=== PATIENT | male | born 1940 | race Caucasian/White ===

== ENCOUNTER 2019-10-11 08:45 | Outpatient (CLI) | payer MEDICARE, OTHER, SELFPAY ==
--- NOTE | 2019-10-11 09:03 | XR_ITS ---
WS: [id number] SHOULDER RIGHT TECHNIQUE: 3 views of the right shoulder CLINICAL INFORMATION: REVERSE TOTAL SHOULDER ARTHROPLASTY COMPARISON: None. FINDINGS: Normal acromioclavicular joint. Reversed right TSA. Right lung is well aerated. A few calcified granu rj. IMPRESSION: Normal appearing reversed right total shoulder arthroplasty
== END 2019-10-11 08:46 | disposition home or self-care (01) ==
LOC: RAD 08:51
PROVIDERS: Family Provider Nurse Practitioner Family; Visit Provider Orthopaedic Surgery
DX: Z96.611 Presence of right artificial shoulder joint (principal)
CPT/HCPCS: 73030

== ENCOUNTER 2019-12-22 11:42 | Outpatient (CLI) | payer MEDICARE, OTHER, SELFPAY ==
--- NOTE | 2019-12-22 11:49 | XR_ITS ---
WS: [id number] ABDOMEN 2 VIEW(S) HISTORY: FLANK PAIN COMPARISON: 01/12/2017 Normal bowel gas pattern. No free air. No obstruction. Calcification measuring 10 mm over the lower pole RIGHT kidney. No LEFT renal calcifications. Possible distal LEFT ureteral calcification measuring 7 mm is ovoid. This calcification was not on th e records section supervisor radiograph of 01/12/2017. Mild degenerative changes in the spine. XR/XR abdomen min 2V [id number] IMPRESSION: 1. Possible distal LEFT ureteral 7 mm ovoid calcification. New calcification s josy 01/12/2017. 2. Lower pole RIGHT renal calcification measuring 10 mm.
== END 2019-12-22 11:43 | disposition home or self-care (01) ==
LOC: RADWPI 11:47
PROVIDERS: PCP Nurse Practitioner Family; Visit Provider Nurse Practitioner Family
DX: R10.9 Unspecified abdominal pain (principal); N20.0 Calculus of kidney
CPT/HCPCS: 74019

== ENCOUNTER 2019-12-27 13:01 | Outpatient (CLI) | payer MEDICARE, OTHER, SELFPAY ==
--- NOTE | 2019-12-27 13:00 | XRR_ITS ---
PROCEDURE INFORMATION: Exam: XR Abdomen, 1 View Exam date and time: 12/27/2019 1:08 PM Age: 79 years old Clinical indication: Patient HX: C/O left flank pain x 2-3 weeks TECHNIQUE: Imaging protocol: XR of the abdomen. Views: Frontal supine view of the abdomen. 1 View. COMPARISON: CT abdomen pelvis w con* [id number] 01/12/2017 10:56 AM FINDINGS: Gastrointestinal tract: Normal. No bowel dilation. Bones/joints: Unremarkable. There is a 7.2 x 7.8 mm caliceal stone in the lower pole collecting system of the right kidney. This finding was present on prior CT examination XR/XR KUB [id number] IMPRESSION: No acute findings. Stable caliceal stone lower pole right kidney
== END 2019-12-27 13:02 | disposition home or self-care (01) ==
LOC: RAD 13:04
PROVIDERS: PCP Nurse Practitioner Family; Visit Provider Urology
DX: R10.9 Unspecified abdominal pain (principal); N20.0 Calculus of kidney
CPT/HCPCS: 74018; 81001

== ENCOUNTER 2019-12-30 08:18 | Outpatient (CLI) | payer MEDICARE, OTHER, SELFPAY ==
--- NOTE | 2019-12-30 08:00 | CT_ITS ---
WS: [id number] CT ABDOMEN AND PELVIS NONCONTRAST HISTORY: STONE TECHNIQUE: Imaging performed through the abdomen and pelvis. Coronal and sagittal reformats are submi tted. All CT scans at [facility] use at least one of these dose optimization techniques: automated exposure control; mA and/or kV adjustment per patient size (includes targeted exams where d ose is matched to clinical indication); or iterative reconstruction. DLP: 852.94 mGy.cm COMPARISON: 01/12/2017 Lower thorax: Chronic emphysematous changes. Benign LEFT lower lobe granuloma. Long-term stability of a 5 mm nodule in the RIGHT middle lobe. Mild enlargement the heart chambers. Small hiatal hernia. Liver: Normal, no mass or intrahepatic dilatation. Gallbladder: Unremarkable. Pancreas: Normal. Spleen: Normal. Adrenal glands: Mild thickening of the LEFT adrenal gland. No mass. Right kidney: Several nonobstructing stones in the RIGHT renal pelvis. The largest measures 8 mm in t he lower pole. No obstruction. Left kidney: Mild perinephritic stranding. Nonobstructing calcifications with the largest measuring 6 mm. 2.5 cm low-attenuation lesion in the LEFT kidney is probably a cyst. Increased in size since 201 7. Global cysts were seen on the prior study and these are not as apparent on this unenhanced study. Mild atherosclerosis. No free fluid, intraperitoneal air or significant lymphadenopathy. GI tract: Small diverticulum along the second portion of the duodenum. No GI tract obstruction. The a ppendix is not definitely identified. No inflammatory process. There are numerous diverticula in the descending and sigmoid colon. Mild associated chronic wall thickening. No acute inflammation. Abdominal wall: Small umbilical hernia contains fat only. Pelvis: Normally distended urinary bladder. There are numerous calcific densities in the floor the ur inary bladder. These are contiguous and extends into the prostate gland. Others may be bladder calcul i. The largest measures 6 mm. Prostate gland is enlarged measuring 8.3 x 5.1 x 4.4 cm and contains ce ntral calcifications. No ascites or adenopathy in the pelvis. Osseous structures: L5 anterolisthesis by 10 mm due to bilateral pars defects. Similar to the prior e xamination. CT/CT kidney stone [id number] IMPRESSION: 1. Bilateral nephrolithiasis. Largest calcification on the RIGHT measures 8 mm . 2. Markedly enlarged prostate gland measures 8.3 x 5.1 x 4.4 cm. 3. Bladder and prostate gland calcifications. 4. No LEFT ureteral calcification. 5. Grade 1 spondylolisthesis with spondylolysis at L5.
== END 2019-12-30 08:19 | disposition home or self-care (01) ==
LOC: RAD 08:21
PROVIDERS: PCP Nurse Practitioner Family; Visit Provider Urology
DX: N20.0 Calculus of kidney (principal); N40.0 Benign prostatic hyperplasia without lower urinary tract symptoms; N32.89 Other specified disorders of bladder; M43.06 Spondylolysis, lumbar region
CPT/HCPCS: 74176; 81001

== ENCOUNTER 2020-08-14 12:04 | Outpatient (CLI) | payer MEDICARE, OTHER, SELFPAY ==
--- NOTE | 2020-08-14 09:00 | XR_ITS ---
WS: [id number] Exam: XR KUB [id number] Date/Time of Exam: 08/14/2020 12:24 PM Reason For Exam: BLADDER STONE No bowel obstruction or free air. There are calcifications superimposing both kidneys apparently repr esenting known renal stones. Moderate amount of stool throughout the large bowel. Visualized organ ma rgins are otherwise intact. XR/XR KUB [id number] IMPRESSION: 1. 8 mm calcification superimposes the lower pole the right kidney probably rep resenting a renal stone. There are also 2 tiny calcifications measuring the ran ge of 2 to 3 mm each superimposing the left kidney which are also probably amanda l stones. 2. No acute abdominal process.
== END 2020-08-14 12:05 | disposition home or self-care (01) ==
LOC: RAD 12:10
PROVIDERS: PCP Nurse Practitioner Family; Visit Provider Urology
DX: N21.0 Calculus in bladder (principal); N20.0 Calculus of kidney
CPT/HCPCS: 74018; 81003

== ENCOUNTER 2021-08-13 11:47 | Outpatient (CLI) | payer MEDICARE, OTHER, SELFPAY ==
--- NOTE | 2021-08-13 12:00 | XR_ITS ---
WS: [id number] Exam: XR KUB [id number] Date/Time of Exam: 08/13/2021 11:59 AM Reason For Exam: BILATERAL RENAL STONES Comparison 08/14/2020. No bowel obstruction or free air. Calcifications superimpose both renal silhouettes and apparently re present known kidney stones. Nonspecific small calcifications seen along the right and left paraspina l regions of the lumbar spine. Prominent nonspecific pelvic calcifications.. No sign of organ enlarge ment. Bony structures are intact. XR/XR KUB [id number] IMPRESSION: 1. Calcifications superimposing both kidneys representing known renal stones. N onspecific calcifications along the right and left paraspinal region of the bry mbar spine and also within the pelvis. 2. No acute abdominal process.
== END 2021-08-13 11:48 | disposition home or self-care (01) ==
PROVIDERS: PCP Nurse Practitioner Family; Visit Provider Urology
DX: N20.0 Calculus of kidney (principal); N21.0 Calculus in bladder; N40.1 Benign prostatic hyperplasia with lower urinary tract symptoms; N13.8 Other obstructive and reflux uropathy
CPT/HCPCS: 74018; 81003; 87635

== ENCOUNTER 2021-08-19 12:01 | Observation (INO) | payer MEDICARE, OTHER, SELFPAY ==
[2021-08-16 12:46] VITALS: BMI 24.3
[2021-08-19] VITALS (16 sets, daily range): BP systolic 104–152; BP diastolic 62–86; PULSE 62–109; RESP 17–20; TEMP 36.3–37.1; O2SAT 91–99; BMI 24.3
[2021-08-19 09:31] LABS: Basophils % 0.2 %; Eosinophils # 0.1 10^3/uL (0.0-0.8); Eosinophils % 1.8 %; Hematocrit 43.3 % (42.0-52.0); Hemoglobin 14.1 g/dL (11.7-16.6); Lymphocytes # 0.9 10^3/uL (0.8-4.8); Lymphocytes % 14.6 %; Mean Corpuscular HGB Conc 32.6 g/dL (30.0-36.0); Mean Corpuscular Hemoglobin 29.7 pg (28.0-34.0); Mean Corpuscular Volume 91.4 fl (80-94); Mean Platelet Volume 8.8 fL (7.4-10.4); Monocytes # 0.4 10^3/uL (0.2-0.9); Monocytes % 7.4 %; Neutrophils # 4.52 10^3/uL (1.8-7.7); Neutrophils % 75.8 %; Nucleated Red Blood Cells % 0 %; Platelet Count 187 10^3/cmm (130-400); Red Blood Count 4.74 10^6/uL (4.1-5.3); Red Cell Distribution Width 12.5 % (12.1-15.1)
--- NOTE | 2021-08-19 09:39 | P.ANESASSM_ITS ---
Pre-Anesthetic Assessment Height/Weight: Height 1.73 m Weight 72.575 kg Temp Pulse Resp BP Pulse Ox 98.2 F 62 18 149/86 97 08/19/21 09:22 08/19/21 09:22 08/19/21 09:22 08/19/21 09:22 08/19/21 09:22 Preop Diagnosis: Multiple bladder stones, BPH/obstruction Operation Date: 08/19/21 10:20 Proposed Procedures p Cystoscopy 27679/00216/N21.0/N40.1/N13.8(Not Applicable) - Jeff Lentz MD s Transurethral Resection Of Prostate(Not Applicable) - Jeff Lentz MD Familial anesthetic complications: None Was Beta Aurora taken within 24 hours: N/A Was Clonidine taken within 24 hours: N/A Last intake: Intake Last Liquid Date 08/18/21 Last Liquid Time 15:00 Last Solid Date 08/18/21 Last Solid Time 15:00 Social No alcohol and No tobacco Exam alert, oriented x 3, clear to auscultation bilaterally and regular rate & rhythm Airway Submandibular: within normal limits Cervical ROM: within normal limits Mallampati: Class II Dentition: false CV/HEM Hypertension Anesthetic Plan ASA status: 2 Anesthesia: General Medications/Allergies Home Medications Medication Instructions Recorded Confirmed Last Taken Type cholecalciferol (vitamin D3) 25 25 mcg PO DAILY 12/27/19 08/19/21 08/18/21 History mcg (1,000 unit) capsule lisinopril 10 mg tablet 10 mg PO DAILY 12/27/19 08/19/21 08/18/21 History coenzyme Q10 100 mg capsule (Co 100 mg PO DAILY 12/30/19 08/19/21 08/18/21 History Q-10) latanoprost 0.005 % eye drops 1 drp OPHTHALMIC (EYE) DAILY 08/14/20 08/19/21 08/18/21 History Allergies Allergy/AdvReac Type Severity Reaction Status Date / Time No Known Allergies Allergy Unverified 08/19/21 08:58 [facility] Anesthesia Medical History (Updated 08/13/21 @ 14:15 by Jeff Lentz MD) Benign prostatic hyperplasia with lower urinary tract symptoms Bilateral renal stones Bladder stone Elevated PSA Surgical History History of tonsillectomy and adenoidectomy Hx of cataract removal with insertion of prosthetic lens Hx of transurethral resection of prostate Social History Smoking and tobacco status: never smoked Alcohol intake: never Adopted: No Caregiver/support person: No Marital status: / Current occupational status: employed Data Anesthesia : 08/19/21 09:05 08/19/21 09:05 Short CBC 08/19/21 Range/Units 09:05 WBC 6.0 (4.0-10.0) 10^3/uL Hgb 14.1 (11.7-16.6) g/dL Hct 43.3 (42.0-52.0) % MCV 91.4 (80-94) fl Plt Count 187 (130-400) 10^3/cmm Neut % (Auto) 75.8 % Neut # (Auto) 4.52 (1.8-7.7) 10^3/uL Cardiac Studies: No Data to Display
[2021-08-19 09:48] LABS: Alanine Aminotransferase 7 U/L (0-41); Albumin Level 4.4 g/dL (3.5-5.2); Alkaline Phosphatase 99 IU/L (40-130); Anion Gap 15.2 (5-19); Aspartate Amino Transferase 17 U/L (0-40); Blood Urea Nitrogen 22 mg/dL (8-23); Calcium 9.1 mg/dL (8.5-10.5); Carbon Dioxide 25 mmol/L (22-29); Chloride 103 mmol/L (98-107); Globulin 2.7 g/dL (1.3-4.6); Glucose 105 mg/dL (65-115); Osmolality Calculated 292 mOsm/kg (285-295); Potassium 4.2 mmol/L (3.5-5.1); Sodium 139 mmol/L (136-145); Total Bilirubin 0.8 mg/dL (0.15-1.2); Total Protein 7.1 g/dL (6.6-8.7)
--- NOTE | 2021-08-19 09:54 | W.PM.OPSUD ---
Surgery/Procedure H&P Update DATE OF PROCEDURE: August 19, 2021 DATE H&P PERFORMED: 08/13/21 H&P UPDATE INFORMATION: I have reviewed H&P completed within last 30 days, I have examined patient prior to procedure, No changes to prior documentation and H&P to be scanned into chart PREOP DIAGNOSIS: Multiple bladder stones, BPH/obstruction PLANNED PROCEDURE: Operation Date: 08/19/21 10:20 Proposed Procedures p Cystoscopy 32129/35674/N21.0/N40.1/N13.8(Not Applicable) - Jeff Lentz MD s Transurethral Resection Of Prostate(Not Applicable) - Jeff Lentz MD
--- NOTE | 2021-08-19 10:04 | P.OP_ITS ---
Operative Report Date of procedure: August 19, 2021 Pre-op diagnosis: Preop Diagnosis Multiple bladder stones, BPH/obstruction Post-op diagnosis: Multiple bladder stones, BPH/obstruction Procedure done: 1. Cystoscopy, transurethral resection/vaporization of prostate tissue 2. Cystolitholapaxy >2.5 cm Pathology: Prostate chips Bladder stone fragments Surgeon: Tor Anesthesia: General Estimated blood loss: Minimal Urine output: Not measured Complications: None Findings: 1. Multiple bladder stones fragmented and removed 2. Large regrowth of median lobe mostly vaporized. Some lateral lobe hypertrophy also vaporized for opening up the channel. Brief History: Alex is a very pleasant 80-year-old white male with a history of transurethral resection/vaporization of prostate about 10 years ago. Did well for many years with some slowing of his stream recently. Was found to have some gross hematuria and discovered to have multiple bladder stones and a lot of regrowth of adenomatous tissue. We discussed the option of just treating the stones which would likely help some of his symptoms but also the fact that with such a large amount of regrowth of prostatic tissue that he is likely to form more in the future. He also 1 to see if he could get a better response for voiding purposes. Procedure: After routine preoperative evaluation examination and obtaining of informed consent he was taken to the operating suite on 08/19/2021 where general anesthe basil was administered without difficulty after appropriate timeout was performed, SCDs confirmed to be functioning, preoperative antibiotics administered, beta- armin protocol confirmed. Prepped and draped in usual sterile fashion in dorsolithotomy position paying careful attention to avoiding pressure points. 21 Irish cystoscope with 30 degree lens was introduced into the urethra meatus and advanced into the bladder under videoscopy. Bladder was systematically examined. Clinic findings were confirmed. 365 ?m thulium superpulse laser fiber was utilized to fragment all the stones into small enough pieces it could be easily evacuated from the bladder with an [employer] evacuator. At the completion of procedure all stone fragments were complete for him to be out. Urethra was then calibrated with [place] sounds and easily accommodated 30 Irish. 2% lidocaine jelly was instilled into the urethra then a well- lubricated continuous-flow resectoscope sheath with visual obturator in place w as advanced into the bladder without difficulty. The gyrus bipolar system was utilized first with vaporization button for addressing the prostatic tissue. Attention was then directed to treating the prostate. He had very little lateral lobe hypertrophy regrowth but had a very large protruding median lobe to the level of the previous resection. There was a clear delineation proximally from the bladder neck to this lobe but extended all the way anteriorly to the anterior bladder neck. Initially the button probe was utilized for vaporization which allowed better flow of fluid in and out of the bladder through the scope and once this was achieved the super loop was utilized to resect down to the previously floor. This freed up the prostate fossa dramatically. All chips were evacuated from the bladder. The button probe was then utilized for vaporization and sculpting of the prostatic fossa. At the completion all chips were out of the bladder, hemostasis was excellent, there were no additional bladder stones visualized. Bladder was drained with a 20 Irish three-way Lancaster catheter with 30 cc placed in the balloon with clear efflux. Tolerated procedure well without complications and was awakened in the operating room and returned to the recovery room in stable condition. PLANS: 1. Admit to observation status 2. Anticipate discharge tomorrow without Lancaster catheter. Voiding trial in the morning.
[2021-08-19] MEDS: D5-NS 0.45% + KCL 20 mEq 20 MEQ/1,000 ML BAG 50 MEQ IV (13:48)
[2021-08-19] MEDS: lidocaine 2% Urojet 20 mL (13:48)
[2021-08-19] MEDS: lisinopril 10 mg Tablet PO (13:48)
--- NOTE | 2021-08-19 14:34 | ANE.PACU2 ---
Inpatient post-anesthesia follow up: Airway intact: Yes Vital signs: Temperature 97.4 F Pulse Rate 86 Respiratory Rate 18 Blood Pressure 124/68 Pulse Oximetry 96 Oxygen Delivery Me thod Room Air Oxygen Flow Rate 6 Fraction of Inspir ed Oxygen Hydration adequate: Yes Nausea and vomiting: No Pain level: 2 Mental status: Baseline
[2021-08-19] MEDS: docusate sodium 100 mg Capsule PO (18:22)
[2021-08-20] VITALS (8 sets, daily range): BP systolic 112–128; BP diastolic 62–76; PULSE 67–103; RESP 16–18; TEMP 36.7–37.2; O2SAT 94–97
--- NOTE | 2021-08-20 07:36 | PM.DCS ---
Discharge Providers Date of Admission: 08/19/21 12:01 Date of Discharge: August 20, 2021 Attending Provider at Admission: Jeff Lentz MD Attending Provider at Discharge: Jeff Lentz MD Primary Care Provider: Italia Strange NP Reason for Visit Reason for Visit: N21.0/N40.1/N13.8 Brief History: Mr. Carbajal is an 80-year-old white male who had a remote TURP with good effect but over time had increasing symptoms again. 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 Cystoscopy in clinic revealed a very large obstructing regrown median lobe but minimal lateral lobe regrowth. He had multiple bladder stones and elected to proceed with cystolitholapaxy and transurethral section/vaporization of the prostate. Hospital Course Hospital Course Admitted through Outpatient Surgery on 08/19/2021. Underwent transurethral section/vaporization of the prostate after cystolitholapaxy. Lancaster catheter was removed on postop day #1 and he voided spontaneously with clearing urine. PVRs confirmed adequate emptying and he was discharged in stable condition on postop day #1. Physical Exam Const: COMMON NORMALS: no acute distress, average body habitus and patient oriented x3 Resp: COMMON NORMALS: normal respiratory effort, No retractions and clear to auscultation bilaterally AUSCULTATION: clear to auscultation bilaterally : OTHER: Urine is clear. Extremity: NARRATIVE EXTREMITY EXAM: Good range of motion. Neuro: COMMON NORMALS: patient oriented x3 Psych: COMMON NORMALS: mental status grossly normal and Normal thought process present THOUGHT PROCESS: Normal thought process present Urinary Catheter Management: 3-way Urethral CBI: Cath Placed During This Visit: yes Reason for Continuing Indwelling Catheter: Acute Urinary Retention or Obstruction Urinary Catheter Date of Insertion: 08/19/21 Urinary Catheter Time of Insertion: 11:00 Discharge Data Studies Completed and Pending Pending at discharge Category Date Time Status Stone Analysis Routine Lab 08/19/21 10:46 Received Pathology: Surgical [PTH] Routine Pth 08/19/21 11:17 Received Laboratory Results WBC 6.0 10^3/uL (4.0-10.0) 08/19/21 09:05 RBC 4.74 10^6/uL (4.1-5.3) 08/19/21 09:05 Hgb 14.1 g/dL (11.7-16.6) 08/19/21 09:05 Hct 43.3 % (42.0-52.0) 08/19/21 09:05 MCV 91.4 fl (80-94) 08/19/21 09:05 MCH 29.7 pg (28.0-34.0) 08/19/21 09:05 MCHC 32.6 g/dL (30.0-36.0) 08/19/21 09:05 RDW 12.5 % (12.1-15.1) 08/19/21 09:05 Plt Count 187 10^3/cmm (130-400) 08/19/21 09:05 MPV 8.8 fL (7.4-10.4) 08/19/21 09:05 Neut % (Auto) 75.8 % 08/19/21 09:05 Lymph % (Auto) 14.6 % 08/19/21 09:05 Morris % (Auto) 7.4 % 08/19/21 09:05 Eos % (Auto) 1.8 % 08/19/21 09:05 Baso % (Auto) 0.2 % 08/19/21 09:05 Neut # (Auto) 4.52 10^3/uL (1.8-7.7) 08/19/21 09:05 Lymph # (Auto) 0.9 10^3/uL (0.8-4.8) 08/19/21 09:05 Morris # (Auto) 0.4 10^3/uL (0.2-0.9) 08/19/21 09:05 Eos # (Auto) 0.1 10^3/uL (0.0-0.8) 08/19/21 09:05 Baso # (Auto) 0.0 10^3/uL (0.0-0.1) 08/19/21 09:05 Nucleated RBC % (auto) 0 % 08/19/21 09:05 Nucleated RBCs # 0.0 /100WBC 08/19/21 09:05 Sodium 139 mmol/L (136-145) 08/19/21 09:05 Potassium 4.2 mmol/L (3.5-5.1) 08/19/21 09:05 Chloride 103 mmol/L (98-107) 08/19/21 09:05 Carbon Dioxide 25 mmol/L (22-29) 08/19/21 09:05 Anion Gap 15.2 (5-19) 08/19/21 09:05 BUN 22 mg/dL (8-23) 08/19/21 09:05 Creatinine 1.0 mg/dL (0.7-1.2) 08/19/21 09:05 GFR Calculation Not Reportable 08/19/21 09:05 Glucose 105 mg/dL (65-115) 08/19/21 09:05 Calculated Osmolality 292 mOsm/kg (285-295) 08/19/21 09:05 Calcium 9.1 mg/dL (8.5-10.5) 08/19/21 09:05 Total Bilirubin 0.8 mg/dL (0.15-1.2) 08/19/21 09:05 AST 17 U/L (0-40) 08/19/21 09:05 ALT 7 U/L (0-41) 08/19/21 09:05 Alkaline Phosphatase 99 IU/L (40-130) 08/19/21 09:05 Total Protein 7.1 g/dL (6.6-8.7) 08/19/21 09:05 Albumin 4.4 g/dL (3.5-5.2) 08/19/21 09:05 Globulin 2.7 g/dL (1.3-4.6) 08/19/21 09:05 Procedures Performed Cystoscopy, transurethral resection/vaporization of the prostate Cystolitholapaxy Vitals Last Vital Signs Temp 98.4 F 08/20/21 04:00 Pulse 74 08/20/21 07:26 Resp 16 08/20/21 07:26 BP 127/69 08/20/21 07:26 Pulse Ox 97 08/20/21 07:26 Discharge Plan Discharge Patient Disposition: Home Condition: Stable Prescriptions: Continued lisinopril 10 mg tablet 10 mg PO DAILY 0RF cholecalciferol (vitamin D3) 25 mcg (1,000 unit) capsule 25 mcg PO DAILY 0RF coenzyme Q10 [Co Q-10] 100 mg capsule 100 mg PO DAILY 0RF latanoprost 0.005 % drops 1 drp ophthalmic (eye) DAILY 0RF Discharge Orders: Discharge Order (Routine); Ordered 08/20/21 Ordered By: Jeff Lentz Referrals: Jeff Lentz MD [Physician] - 10/24/21 8:15 am (Flow rate PVR AUA symptom score.) Discharge Diet: Advance as tolerated Discharge Activity: Limit activity as instructed Patient Instructions: Transurethral Prostatectomy (GEN), Opioid Safety Activity Restrictions/Additional Instructions: 1. Avoid lifting or straining for at least 2 weeks. If your urine is still bloody at that point continue to postpone resumption of normal activity. 2. It is normal to see blood in your urine off and on for several weeks after the procedure. If this does occur it is important to drink a lot of fluids to flush it out to prevent clots and to avoid strenuous activity that may have precipitated it. 3. We will plan on seeing you back in about 2 months for a flow rate and bladder residual check. Please call if prior to that time if you have concerns or questions. Discharge Attestations Time Spent in Discharge Care*: less than 30 min Quality Metrics Clinical Quality Measures [ No reported AMI, CVA or VTE this stay] Coding Level of Care Code Acute Chg FW DC note Exam Expanded Problem Focused
[2021-08-20] MEDS: D5-NS 0.45% + KCL 20 mEq 20 MEQ/1,000 ML BAG 50 MEQ IV (08:27)
[2021-08-20] MEDS: docusate sodium 100 mg Capsule PO (08:27)
[2021-08-20] MEDS: lisinopril 10 mg Tablet PO (08:27)
[2021-08-23 23:28] LABS: Stone Source BLADDER STONES
== END 2021-08-20 17:05 | disposition home or self-care (01) ==
LOC: MEDSURG 12:03
PROVIDERS: Admitting Provider Urology; PCP Nurse Practitioner Family; Visit Provider Urology
PROC: 0TJB8ZZ Inspection of Bladder, Via Natural or Artificial Opening Endoscopic (ICD-10-PCS; CPT 52000; principal; 2021-08-19 10:10)
PROC: 0VT08ZZ Resection of Prostate, Via Natural or Artificial Opening Endoscopic (ICD-10-PCS; CPT 52601; 2021-08-19 10:10)
PROC: (CPT 52318; 2021-08-19 10:10)
DX: N21.0 Calculus in bladder (principal); N40.1 Benign prostatic hyperplasia with lower urinary tract symptoms; N13.8 Other obstructive and reflux uropathy
CPT/HCPCS: 52318; 52630; 36415; 51798; 80053; 82365; 85025; 88300; 88305; G0378; J1100; J2405; J2704; J2710; J3010; J3490

== ENCOUNTER → 2022-02-21 11:33 | Outpatient (BNVA) | payer MEDICARE, OTHER, SELFPAY | PROVIDERS: PCP Nurse Practitioner Family; Visit Provider Urology | DX: R33.9 Retention of urine, unspecified (principal); N20.0 Calculus of kidney; R31.0 Gross hematuria; N21.0 Calculus in bladder; N40.1 Benign prostatic hyperplasia with lower urinary tract symptoms | CPT/HCPCS: 51798; 74018; 81003; 99213 ==

== ENCOUNTER → 2022-03-18 09:02 | Outpatient (BNVA) | payer MEDICARE, OTHER, SELFPAY | PROVIDERS: PCP Family Medicine; Referring Provider Family Medicine; Visit Provider Surgery | DX: Z12.11 Encounter for screening for malignant neoplasm of colon (principal) | CPT/HCPCS: 99024; 99203 ==

== ENCOUNTER 2022-04-07 05:44 | Day surgery (SDC) | payer MEDICARE, OTHER, SELFPAY ==
[2022-04-03 09:37] VITALS: BMI 24.3
[2022-04-07 06:08] VITALS: BP 160/93; PULSE 90; RESP 18; TEMP 36.3; O2SAT 97
[2022-04-07] MEDS: sodium chloride 0.9% 1,000 ML 30 ML IV (06:24)
--- NOTE | 2022-04-07 06:49 | ANES.PREANE2 ---
Pre-Anesthetic Assessment Height/Weight: Height 1.73 m Weight 72.575 kg Temp Pulse Resp BP Pulse Ox O2 Del Method 97.4 F L 90 18 160/93 97 04/07/22 06:08 04/07/22 06:08 04/07/22 06:08 04/07/22 06:08 04/07/22 06:08 04/07/22 06:08 Preop Diagnosis: Multiple bladder stones, BPH/obstruction Operation Date: 04/07/22 07:00 Proposed Procedures p Colonoscopy 63477,Z12.11(Not Applicable) - Vinny Rodas DO Familial anesthetic complications: none Was Beta Aurora taken within 24 hours: N/A Was Clonidine taken within 24 hours: N/A Last intake: Intake Last Liquid Date 04/06/22 Last Liquid Time 17:00 Last Solid Date 04/05/22 Last Solid Time 14:00 Last Intake: 17:00 Social No alcohol and No tobacco Exam alert, oriented x 3, clear to auscultation bilaterally and regular rate & rhythm Airway Submandibular: within normal limits Cervical ROM: within normal limits Mallampati: Class I Dentition: false Pulmonary None reported CV/HEM Hypertension None reported Hepatic None reported GI None reported Metabolic None reported Musc/skel Lower Back Pain and Osteoarthritis/DJD Neuropsych None reported Anesthetic Plan ASA status: 2 Anesthesia: MAC Risk of > 500 ml blood loss (7ml/kg in children): No Medications/Allergies Home Medications Medication Instructions Recorded Confirmed Last Taken Type cholecalciferol (vitamin D3) 25 25 mcg PO DAILY 12/27/19 04/03/22 04/05/22 History mcg (1,000 unit) capsule coenzyme Q10 100 mg capsule (Co 100 mg PO DAILY 12/30/19 04/03/22 04/05/22 History Q-10) latanoprost 0.005 % eye drops 1 drp ophthalmic (eye) DAILY 08/14/20 04/03/22 04/05/22 History lisinopril 10 mg tablet 5 mg PO DAILY #30 tabs 03/19/22 04/03/22 04/05/22 Rx Allergies Allergy/AdvReac Type Severity Reaction Status Date / Time No Known Allergies Allergy Unverified 04/03/22 09:36 Current Medications Generic Name Dose Route Start Last Admin Trade Name Freq PRN Reason Stop Dose Admin Sodium Chloride 1,000 mls @ 30 mls/hr 10/17/22 06:00 04/07/22 06:24 Sodium Chloride 0.9% IV 30 mls/hr .Q24H GEOVANNY Administration PFSH Anesthesia Medical History Benign prostatic hyperplasia with lower urinary tract symptoms Bilateral renal stones Bladder stone CYSTOLITHALOPAXY Elevated PSA HTN (hypertension) Hx of colonic polyps Surgical History (Updated 03/18/22 @ 09:49 by Vinny Rodas DO) History of shoulder replacement History of tonsillectomy and adenoidectomy Hx of cataract removal with insertion of prosthetic lens Hx of total knee replacement Hx of transurethral resection of prostate With CYSTOLITHALOPAXY Social History Smoking and tobacco status: never smoked Alcohol intake: never Adopted: No Caregiver/support person: No Marital status: / Current occupational status: employed History of recent travel: No Data Anesthesia Cardiac Studies: No Data to Display
--- NOTE | 2022-04-07 07:00 | W.PM.OPSUD ---
Surgery/Procedure H&P Update DATE OF PROCEDURE: April 07, 2022 DATE H&P PERFORMED: 03/18/22 PREOP DIAGNOSIS: Multiple bladder stones, BPH/obstruction PLANNED PROCEDURE: Operation Date: 04/07/22 07:00 Proposed Procedures p Colonoscopy 65091,Z12.11(Not Applicable) - Vinny Rodas DO
[2022-04-07 07:15] VITALS: BP 85/59; PULSE 80; RESP 16; TEMP 36.1; O2SAT 97
[2022-04-07 07:26] VITALS: BP 119/76; PULSE 84; RESP 18; O2SAT 98
--- NOTE | 2022-04-07 14:56 | ANE.PACU2 ---
Inpatient post-anesthesia follow up: Airway intact: Yes Vital signs: Temperature 97 F Pulse Rate 84 Respiratory Rate 18 Blood Pressure 119/76 Pulse Oximetry 98 Oxygen Delivery Me thod Room Air Oxygen Flow Rate Fraction of Inspir ed Oxygen Hydration adequate: Yes Nausea and vomiting: No Pain level: 1 Mental status: Baseline
== END 2022-04-07 07:50 | disposition home or self-care (01) ==
PROVIDERS: PCP Family Medicine; Visit Provider Surgery
PROC: 0DJD8ZZ Inspection of Lower Intestinal Tract, Via Natural or Artificial Opening Endoscopic (ICD-10-PCS; CPT 45330; principal; 2022-04-07 07:00)
DX: Z12.11 Encounter for screening for malignant neoplasm of colon (principal); K57.30 Diverticulosis of large intestine without perforation or abscess without bleeding; K64.4 Residual hemorrhoidal skin tags; I10 Essential (primary) hypertension
CPT/HCPCS: 45330; J2704; J7030

== ENCOUNTER 2022-05-16 13:21 | Outpatient (CLI) | payer MEDICARE, OTHER, SELFPAY ==
--- NOTE | 2022-05-16 13:00 | CT_ITS ---
WS: [id number] CT ABDOMEN PELVIS TECHNIQUE: Contrast-enhanced CT of the abdomen and pelvis with coronal and sagittal reformatted image s. CLINICAL INFORMATION: Abdominal pain right flank pain COMPARISON: CT December 30, 2019 DLP: 927.[address] scans at [facility] use at least one of these dose optimization techniques: automated e xposure control; mA and/or kV adjustment per patient size (includes targeted exams where dose is matc hed to clinical indication); or iterative reconstruction. FINDINGS: Anterior wedging with compression of the L1 vertebral body is new from 2020. Loss of approximately 50 % vertebral body height. No significant retropulsion. Fracture cleft in the superior endplate. Recomm end correlation with low-back pain. Normal liver. Normal portal vein and splenic vein. A few tiny noncalcified nodules in the lung bases. This can be followed up with chest CT. Normal spleen. Normal pancreas. Adrenal glands are normal. Sm all esophageal hiatal hernia. No hydronephrosis in either kidney. Nonobstructing RIGHT calyceal tip c alculi. LEFT renal cysts. Largest LEFT renal cyst measures 3.1 cm. No hydronephrosis in either kidney . Markedly enlarged prostate with heterogeneous enhancement. Findings suspicious for neoplasia. This ap pears similar to 2020 measuring 6.5 x 5.3 x 4.9 cm with indentation on the bladder. Mild bladder wall thickening likely due to bladder outlet obstruction. Recommend correlation PSA. Mild thickening of t he seminal vesicles bilaterally. Normal caliber abdominal aorta. Aortic calcification. Sigmoid diverticulosis. Mild thickening of the sigmoid colon with trace surrounding induration in the LEFT lower quadrant can be seen with early or mild acute diverticulitis. Gallbladder appears normal. Grade 1 anterolisthesis L5 on S1 with bilateral spondylolysis. Small amount of fluid along the LEFT proximal inguinal canal. CT/CT abdomen pelvis w con* [id number] IMPRESSION: 1. Sigmoid diverticulosis.Tiny amount of induration in the LEFT lower quadrant can be seen with early or mild diverticulitis although equivocal. Recommend co rrelation with infectious symptoms. 2. Markedly enlarged prostate with heterogeneous enhancement and evidence of b ladder outlet obstruction. Recommend correlation PSA. Findings suspicious for n eoplasia. 3. No hydronephrosis in either kidney. Nonobstructing RIGHT calyceal tip calcu li. 4. Simple LEFT renal cysts the largest measuring 3.1 cm. 5. Compression fracture L1 vertebral body with anterior wedging. Loss of appro ximately 50% vertebral body height with fracture cleft in the superior plate.Co rrelation with low-back pain. This is age indeterminant. 6. Grade 1 anterolisthesis L5 on S1 with spondylolysis.
[2022-05-16] MEDS: iohexol 350 mg/mL 500 mL Btl (per mL) IV (13:28)
[2022-05-16 14:00] LABS: Blood Urea Nitrogen 18 mg/dL (8-23)
== END 2022-05-16 13:22 | disposition home or self-care (01) ==
LOC: RAD 13:22
PROVIDERS: PCP Family Medicine; Visit Provider Family Medicine
DX: K57.30 Diverticulosis of large intestine without perforation or abscess without bleeding (principal); N40.0 Benign prostatic hyperplasia without lower urinary tract symptoms; N20.0 Calculus of kidney; M47.817 Spondylosis without myelopathy or radiculopathy, lumbosacral region; S32.019A Unspecified fracture of first lumbar vertebra, initial encounter for closed fracture; X58.XXXA Exposure to other specified factors, initial encounter
CPT/HCPCS: 74177; 82565; 84520; Q9967

== ENCOUNTER → 2022-05-29 08:47 | Outpatient (BNVA) | payer MEDICARE, OTHER, SELFPAY | PROVIDERS: PCP Family Medicine; Visit Provider Family Medicine | DX: R31.0 Gross hematuria (principal); N40.0 Benign prostatic hyperplasia without lower urinary tract symptoms | CPT/HCPCS: 84153 ==

== ENCOUNTER 2022-08-26 12:47 | Outpatient (CLI) | payer MEDICARE, OTHER, SELFPAY ==
--- NOTE | 2022-08-26 12:56 | XRR_ITS ---
PROCEDURE INFORMATION: Exam: XR Abdomen Exam date and time: 08/26/2022 1:20 PM Age: 81 years old Clinical indication: Condition or disease; Kidney or ureter condition; Calculus (stone) in kidney; Additional info: Bilateral renal stones, kub @ ozh 08/26/22 @100 appointment to follow TECHNIQUE: Imaging protocol: Radiologic exam of the abdomen. Views: Frontal supine view of the abdomen. 1 View. COMPARISON: CT abdomen pelvis w con* [id number] 05/16/2022 1:54 PM FINDINGS: Gastrointestinal tract: Nonspecific nonobstructive bowel gas pattern, with predominance of gas and stool in the colon. Intraperitoneal space: No indication of free air. Organs: Comparison with February 21, 2022 exam. Calcifications overlie the kidneys, the larger within the lower pole of the right kidney, as noted with prior exam. Suggestion of pelvic phleboliths. Bones/joints: No acute findings. Prior mild compression deformity L1. Other findings: Psoas margins appear distinct. XR/XR KUB [id number] IMPRESSION: Suggestion of bilateral renal calculi, largest overlying the lower pole of the right kidney as noted with prior exam. Nonspecific nonobstructive bowel gas pattern.
== END 2022-08-26 12:48 | disposition home or self-care (01) ==
LOC: RAD 12:50
PROVIDERS: PCP Family Medicine; Visit Provider Urology
DX: N20.0 Calculus of kidney (principal); N40.1 Benign prostatic hyperplasia with lower urinary tract symptoms; R31.0 Gross hematuria; N21.0 Calculus in bladder; R97.20 Elevated prostate specific antigen [PSA]
CPT/HCPCS: 51741; 51798; 74018; 81003; 99213

== ENCOUNTER → 2022-12-17 08:51 | Outpatient (BNVA) | payer MEDICARE, OTHER, SELFPAY | PROVIDERS: PCP Family Medicine; Visit Provider Family Medicine | DX: R31.9 Hematuria, unspecified (principal) | CPT/HCPCS: 81000; 87086 ==

== ENCOUNTER → 2022-12-22 14:11 | Outpatient (BNVA) | payer MEDICARE, OTHER, SELFPAY | PROVIDERS: PCP Family Medicine; Visit Provider Family Medicine | DX: N39.0 Urinary tract infection, site not specified (principal); R31.9 Hematuria, unspecified | CPT/HCPCS: 80053; 81003; 85025; 86140 ==

== ENCOUNTER 2023-01-04 17:04 | Emergency (ER) | payer MEDICARE, OTHER, SELFPAY ==
[2023-01-04] VITALS (7 sets, daily range): BP systolic 123–153; BP diastolic 64–92; PULSE 63–80; RESP 16–17; TEMP 36.8; O2SAT 96–99; BMI 22.8
[2023-01-04] MEDS: sodium chloride 0.9% 1,000 ML 999 ML IV (18:26)
[2023-01-04 18:29] LABS: Basophils % 0.6 %; Eosinophils # 0.1 10^3/uL (0.0-0.8); Eosinophils % 2.3 %; Hematocrit 38.3 % (42.0-52.0); Lymphocytes % 26.8 %; Mean Corpuscular HGB Conc 31.3 g/dL (30.0-36.0); Mean Corpuscular Hemoglobin 27.8 pg (28.0-34.0); Mean Corpuscular Volume 88.7 fl (80-94); Mean Platelet Volume 8.8 fL (7.4-10.4); Monocytes # 0.4 10^3/uL (0.2-0.9); Monocytes % 11.9 %; Neutrophils # 2.07 10^3/uL (1.8-7.7); Neutrophils % 58.4 %; Nucleated Red Blood Cells % 0 %; Platelet Count 206 10^3/cmm (130-400); Red Blood Count 4.32 10^6/uL (4.1-5.3); Red Cell Distribution Width 13.8 % (12.1-15.1); White Blood Count 3.5 10^3/uL (4.0-10.0)
--- NOTE | 2023-01-04 18:39 | CTR_ITS ---
PROCEDURE INFORMATION: Exam: CT Abdomen And Pelvis With Contrast Exam date and time: 01/04/2023 6:52 PM Age: 82 years old Clinical indication: Patient HX: Gross hematuria; Additional info: Hematuria with clots TECHNIQUE: Imaging protocol: Computed tomography of the abdomen and pelvis with contrast. Radiation optimization: All CT scans at this facility use at least one of these dose optimization techniques: automated exposure control; mA and/or kV adjustment per patient size (includes targeted exams where dose is matched to clinical indication); or iterative reconstruction. Contrast material: OMNI 350; Contrast volume: 100 ml; Contrast route: INTRAVENOUS (IV); REPORTING DATA: Count of CT and Cardiac NM exams in prior 12 months: This patient has received [address] and 0 known cardiac nuclear medicine studies in the 12 months prior to the current study. COMPARISON: 1. CT abdomen pelvis w con* [id number] 05/16/2022 1:[address] kidney stone [id number] 12/30/2019 9:[address] abdomen pelvis w con* [id number] 01/12/2017 10:56 AM RADIATION DOSE METRICS: Total DLP (mGy-cm): 457.74 FINDINGS: Lungs: Mild bibasilar atelectasis and/or scarring. Multiple lower lung pulmonary nodules stable from December 2019. Heart: Aortic valve calcification. Coronary arteries: Coronary artery calcification. Liver: Normal without focal lesions. Gallbladder and bile ducts: Normal. No calcified stones. No ductal dilation. Pancreas: 1 cm fluid density cyst at the pancreatic body on axial image 27 of series 4 and coronal image 22 of series 6 is stable from December 2016 when using coronal images. Additional 1.3 cm cyst at the head is also stable from 2017. Spleen: Tiny splenic calcifications in keeping with sequela of old granulomatous disease. Adrenal glands: Normal. No mass. Kidneys and ureters: Stable left renal cysts are present, as well as other subcentimeter hypodensities which are too small to characterize. Multiple calcified renal stones, vfyil-[id number]-[id number]-left. No hydronephrosis. Mild symmetric perirenal fat stranding. Normal ureters. Stomach and bowel: Stable duodenal diverticulum. Extensive distal colonic diverticulosis without findings of diverticulitis. No bowel dilatation. No mucosal thickening. Appendix: No evidence of appendicitis. Intraperitoneal space: No free air, free fluid, or well-organized fluid collection. Vasculature: Moderate systemic atherosclerotic calcification without aortic aneurysm. Lymph nodes: No enlarged lymph nodes. Urinary bladder: Underdistended urinary bladder shows circumferential wall thickening. Couple of punctate hyperdensities along the inferior bladder wall, similar to prior exams. Suggested subtle pericystic fat stranding. Reproductive: Heterogeneous enlarged prostate gland measures 5.6 cm in transverse dimension and shows irregular interface with the urinary bladder. Bones/joints: Slight progression of L1 anterior vertebral body compression fracture from April 2022. Degenerative changes along the spine. Stable grade 1 isthmic anterolisthesis of L5 on S1. Soft tissues: Small fat containing umbilical and right inguinal hernias. Small left inguinal hernia containing fat and fluid, stable. CT/CT abdomen pelvis w con* [id number] IMPRESSION: 1. Bilateral nonobstructive nephrolithiasis. 2. Couple punctate calcifications in the urinary bladder similar to prior exams may represent stones. 3. Urinary bladder wall thickening may be on the basis of underdistention, cystitis, and/or outlet obstruction. 4. Heterogeneous enlarged prostate gland. 5. Couple of pancreatic cysts stable from December 2016. Recommend follow-up CT or MRI in 2 years and 4 years to document 10 years stability. 6. Slight progression of L1 anterior vertebral body compression fracture. 7. Additional chronic and incidental findings as above, to include atherosclerosis with coronary artery calcification, duodenal and colonic diverticulosis.
[2023-01-04 18:45] LABS: INR 1.08 (0.8-1.2)
[2023-01-04 18:46] LABS: Partial Thromboplastin Time 29.1 SECONDS (23.9-36.7)
[2023-01-04 18:50] LABS: Alanine Aminotransferase 6 U/L (0-41); Albumin Level 3.7 g/dL (3.5-5.2); Alkaline Phosphatase 97 U/L (40-130); Anion Gap 14.4 (5-19); Aspartate Amino Transferase 10 U/L (0-40); Blood Urea Nitrogen 23 mg/dL (8-23); C Reactive Protein 3.3 mg/L (0.0-4.9); Carbon Dioxide 26 mmol/L (22-29); Chloride 106 mmol/L (98-107); Globulin 2.5 g/dL (1.3-4.6); Glucose 63 mg/dL (65-115); Osmolality Calculated 296 mOsm/kg (285-295); Potassium 4.4 mmol/L (3.5-5.1); Sodium 142 mmol/L (136-145); Total Bilirubin 0.2 mg/dL (0.15-1.2); Total Protein 6.2 g/dL (6.6-8.7)
[2023-01-04] MEDS: iohexol 350 mg/mL 500 mL Btl (per mL) IV (18:53)
[2023-01-04 19:02] LABS: Bilirubin Urine Neg (Negative); Blood Urine 3+ (Negative); Glucose Urine UA Norm (Normal); Ketones Urine 1+ (Negative); Nitrate Urine Negative (Negative); Protein Urine 3+ (Negative); Specific Gravity, Urine 1.025 (1.005-1.030); Urine Appearance Turbid (CLEAR); Urine Color Red (Yellow); pH Urine 7 (5-7)
[2023-01-04 19:03] LABS: Add Urine Microscopic? YES; Leukocyte Esterase Urine 1+ (Negative); Urobilinogen Urine 1 mg/dL (Negative)
[2023-01-04 19:04] LABS: RBC Urine TOO NUMEROUS TO CNT /hpf (0-2)
[2023-01-04 19:05] LABS: Add Urine Culture? Yes; Bacteria Urine 3+ /hpf; Squamous Epithelial Cell Urine 0-4 /hpf (0-5)
--- NOTE | 2023-01-04 19:07 | PC.NURSE ---
Pt report received from Eileen EDMOND. Rounded on pt, pt laying in bed. Pt does not appear to be in distress at this time. Pt denies needs at this time.
--- NOTE | 2023-01-04 20:04 | ED_ITS ---
HPI - Male Genitourinary General: Chief complaint: Urogenital-Male Stated complaint: blood in urine Time Seen by Provider: 01/04/23 18:11 Source: patient History of Present Illness: 82-year-old gentleman here with hematuria on and off for the last 2 weeks. He had seen his physician, an ultrasound was ordered, but he has not had this done yet. He denies fever. Mild burning. He is passing blood and clots. He does not have any obstructive symptoms and that there is no pelvic pain, no urge to go, etc. No vomiting. MD Complaint: other Onset (ago): week(s) Duration: intermittent Severity: moderate Associated symptoms: Reports hematuria; Deny discharge, dysuria, fevers/chills, nausea, rash, swelling, urinary incontinence, urinary retention or vomiting Review of Systems Const: Denies: fever(s) Card: Denies: chest pain Resp: Denies: dyspnea GI: Denies: nausea or vomiting : Reports: hematuria; Denies: dysuria or urinary incontinence PFSH ED PFSH: Medical History Benign prostatic hyperplasia with lower urinary tract symptoms Bilateral renal stones Bladder stone CYSTOLITHALOPAXY Elevated PSA HTN (hypertension) Hx of colonic polyps Surgical History History of shoulder replacement History of tonsillectomy and adenoidectomy Hx of cataract removal with insertion of prosthetic lens Hx of total knee replacement Hx of transurethral resection of prostate With CYSTOLITHALOPAXY Family History Mother , AT AGE 30 No problems noted. Father , AT AGE 99 No problems noted. Social History Smoking and tobacco status: never smoked Alcohol intake: never Substance/Drug Use: unknown Adopted: No Caregiver/support person: No Marital status: / Current occupational status: employed Physical Exam Const: COMMON NORMALS: no acute distress GENERAL APPEARANCE: cooperative; not ill appearing and not frail appearing HENMT: COMMON NORMALS: normocephalic, atraumatic and Normal external nose present HEAD & SCALP: normocephalic and atraumatic FACE & SINUS: normal facial exam and face symmetric NOSE: Normal external nose present Eye: COMMON NORMALS: Equal, round and reactive pupils present and EOMs intact bilaterally PUPIL: Yes Equal, round and reactive pupils present Neck/C-Spine: GENERAL: Yes trachea midline Chest: CHEST: Yes Symmetrical chest wall rise Resp: COMMON NORMALS: normal respiratory effort, No retractions, No use of accessory muscles and clear to auscultation bilaterally AUSCULTATION: clear to auscultation bilaterally Cardio: COMMON NORMALS: regular rate and regular rhythm RATE: regular rate RHYTHM: regular rhythm GI: COMMON NORMALS: Normal to inspection, nondistended, normoactive bowel sounds present Extremity: COMMON NORMALS: no pedal edema Neuro: LUCRECIA COMA SCALE: document GCS findings [place] coma scale eye opening: Spontaneous [place] coma scale verbal response: Orientated [place] coma scale motor response: Obey commands Lucrecia coma scale total score: 15 SENSORY EXAM: Yes extremities (intact) Psych: COMMON NORMALS: speech normal SPEECH: Yes normal speech Skin: COMMON NORMALS: no rashes or lesions noted GENERAL SKIN EXAM: no rashes or lesions noted Course Vital Signs: Vital signs: Vital Signs Temperature 98.3 F 01/04/23 18:02 Pulse Rate 75 01/04/23 20:25 Respiratory Rate 16 01/04/23 20:25 Blood Pressure 143/86 01/04/23 20:25 Pulse Oximetry 98 01/04/23 20:25 Oxygen Delivery Me thod Room Air 01/04/23 20:01 MDM - Male Medical Decision Making Mild leukopenia. Hemoglobin is 12. Sugar 63. He has no mental status changes. He is afebrile. Other vitals are good. CT shows urinary bladder wall thickening. There are couple of punctate calcifications in the bladder. He has nonobstructive nephrolithiasis. And lieu of findings, and urinalysis showing 10-15 whites, 1+ leukocyte Estrace, hemorrhage, and bacteria, will place on a prolonged course of antibiotics and have him follow-up with urology for potential cystoscopy if urinalysis does not clear of urine. Lab Data 01/04/23 18:21 01/04/23 18:21 Radiology Impressions Abdomen/Pelvis CT 01/04/23 18:39 IMPRESSION: 1. Bilateral nonobstructive nephrolithiasis. 2. Couple punctate calcifications in the urinary bladder similar to prior exams may represent stones. 3. Urinary bladder wall thickening may be on the basis of underdistention, cystitis, and/or outlet obstruction. 4. Heterogeneous enlarged prostate gland. 5. Couple of pancreatic cysts stable from December 2016. Recommend follow-up CT or MRI in 2 years and 4 years to document 10 years stability. 6. Slight progression of L1 anterior vertebral body compression fracture. 7. Additional chronic and incidental findings as above, to include atherosclerosis with coronary artery calcification, duodenal and colonic diverticulosis. Laboratory Results WBC 3.5 10^3/uL (4.0-10.0) L 01/04/23 18:21 RBC 4.32 10^6/uL (4.1-5.3) 01/04/23 18:21 Hgb 12.0 g/dL (11.7-16.6) 01/04/23 18:21 Hct 38.3 % (42.0-52.0) L 01/04/23 18:21 MCV 88.7 fl (80-94) 01/04/23 18:21 MCH 27.8 pg (28.0-34.0) L 01/04/23 18:21 MCHC 31.3 g/dL (30.0-36.0) 01/04/23 18:21 RDW 13.8 % (12.1-15.1) 01/04/23 18:21 Plt Count 206 10^3/cmm (130-400) 01/04/23 18:21 MPV 8.8 fL (7.4-10.4) 01/04/23 18:21 Neut % (Auto) 58.4 % 01/04/23 18:21 Lymph % (Auto) 26.8 % 01/04/23 18:21 Karnes % (Auto) 11.9 % 01/04/23 18:21 Eos % (Auto) 2.3 % 01/04/23 18:21 Baso % (Auto) 0.6 % 01/04/23 18:21 Neut # (Auto) 2.07 10^3/uL (1.8-7.7) 01/04/23 18:21 Lymph # (Auto) 1.0 10^3/uL (0.8-4.8) 01/04/23 18:21 Karnes # (Auto) 0.4 10^3/uL (0.2-0.9) 01/04/23 18:21 Eos # (Auto) 0.1 10^3/uL (0.0-0.8) 01/04/23 18:21 Baso # (Auto) 0.0 10^3/uL (0.0-0.1) 01/04/23 18:21 Nucleated RBC % (auto) 0 % 01/04/23 18:21 Nucleated RBCs # 0.0 /100WBC 01/04/23 18:21 PT 14.40 SECONDS (12.1-14.9) 01/04/23 18:21 INR 1.08 (0.8-1.2) 01/04/23 18:21 APTT 29.1 SECONDS (23.9-36.7) 01/04/23 18:21 Sodium 142 mmol/L (136-145) 01/04/23 18:21 Potassium 4.4 mmol/L (3.5-5.1) 01/04/23 18:21 Chloride 106 mmol/L (98-107) 01/04/23 18:21 Carbon Dioxide 26 mmol/L (22-29) 01/04/23 18:21 Anion Gap 14.4 (5-19) 01/04/23 18:21 BUN 23 mg/dL (8-23) 01/04/23 18:21 Creatinine 1.0 mg/dL (0.7-1.2) 01/04/23 18:21 GFR Calculation Not Reportable 01/04/23 18:21 Glucose 63 mg/dL (65-115) L 01/04/23 18:21 Calculated Osmolality 296 mOsm/kg (285-295) H 01/04/23 18:21 Calcium 9.0 mg/dL (8.5-10.5) 01/04/23 18:21 Total Bilirubin 0.2 mg/dL (0.15-1.2) 01/04/23 18:21 AST 10 U/L (0-40) 01/04/23 18:21 ALT 6 U/L (0-41) 01/04/23 18:21 Alkaline Phosphatase 97 U/L (40-130) 01/04/23 18:21 C-Reactive Protein 3.3 mg/L (0.0-4.9) 01/04/23 18:21 Total Protein 6.2 g/dL (6.6-8.7) L 01/04/23 18:21 Albumin 3.7 g/dL (3.5-5.2) 01/04/23 18:21 Globulin 2.5 g/dL (1.3-4.6) 01/04/23 18:21 Urine Color Red (Yellow) 01/04/23 18:12 Urine Appearance Turbid (CLEAR) A 01/04/23 18:12 Urine pH 7 (5-7) 01/04/23 18:12 Ur Specific Crawford 1.025 (1.005-1.030) 01/04/23 18:12 Urine Protein 3+ (Negative) H 01/04/23 18:12 Urine Glucose (UA) Norm (Normal) 01/04/23 18:12 Urine Ketones 1+ (Negative) H 01/04/23 18:12 Urine Blood 3+ (Negative) H 01/04/23 18:12 Urine Nitrate Negative (Negative) 01/04/23 18:12 Urine Bilirubin Neg (Negative) 01/04/23 18:12 Urine Urobilinogen 1 mg/dL (Negative) H 01/04/23 18:12 Ur Leukocyte Esterase 1+ (Negative) H 01/04/23 18:12 Urine RBC Too numerous to cnt /hpf (0-2) H 01/04/23 18:12 Urine WBC 10-15 /hpf (0-5) H 01/04/23 18:12 Ur Squamous Epith Cells 0-4 /hpf (0-5) H 01/04/23 18:12 Amorphous Sediment Not Reportable 01/04/23 18:12 Urine Bacteria 3+ /hpf (NONE) H 01/04/23 18:12 Blood Type O Positive 01/04/23 18:21 Rho(D) Type Positive 01/04/23 18:21 Antibody Screen Negative 01/04/23 18:21 Discharge Plan Discharge Patient Disposition: Home Clinical Impression: Gross hematuria, UTI (urinary tract infection) Condition: Stable Prescriptions: New cefdinir 300 mg capsule 300 mg PO Q12H 10 Days Qty: 20 0RF No Action cholecalciferol (vitamin D3) 25 mcg (1,000 unit) capsule 25 mcg PO DAILY coenzyme Q10 [Co Q-10] 100 mg capsule 100 mg PO DAILY latanoprost 0.005 % drops 1 drp ophthalmic (eye) DAILY ciprofloxacin HCl 500 mg tablet 500 mg PO BID Qty: 14 0RF Discharge Orders: Discharge ED (Routine); Ordered 01/04/23 Ordered By: Rodney Hess Referrals: Gerson Sánchez MD [Primary Care Provider] - Patient Instructions: Urinary Tract Infection in Men (ED), Hematuria (ED) Activity Restrictions/Additional Instructions: Antibiotics as directed. You should get a call from our telephonic case manager by Thursday regarding a urology follow-up appointment. If you do not hear from her by then, they will [phone] and ask for the ER telephonic case manager during normal business hours. Return for fever greater than 100, vomiting liquids or medications, increasing pain, inability to urinate, mental status changes, any other concer mala symptoms. Coding Level of Care Code ED Medical Reception Specialist for Helen Morales
[2023-01-04] MEDS: cefdinir 300 MG CAPSULE PO (20:19)
--- NOTE | 2023-01-05 10:57 | DCPLANNER ---
Addendum entered by Idania Deluna 01/23/23 07:16: mri manager called facility to confirm patients information had been received. mri manager was told that patients information had been received, it will be reviewed and clinic will call patient with appointment information. Original Note: mri manager had message to schedule a follow up appointment with urology. mri manager called patient, spoke with his daughter about where to send patients referral due to not having a urologist at [facility]. Patients daughter stated to send referral to [place]. mri manager faxed patients information to the [place] urology clinic. Patients information will be reviewed and clinic will call patient with appointment information.
== END 2023-01-04 20:28 | disposition home or self-care (01) ==
PROVIDERS: Emergency Provider Emergency Medicine; PCP Family Medicine
DX: N39.0 Urinary tract infection, site not specified (principal); R31.0 Gross hematuria; I10 Essential (primary) hypertension
CPT/HCPCS: 36415; 51798; 74177; 80053; 81001; 85025; 85610; 85730; 86140; 86850; 86900; 87086; 96360; 96361; 99285; J7030; Q9967

== ENCOUNTER → 2023-03-11 08:14 | Outpatient (BNVA) | payer MEDICARE, OTHER, SELFPAY | PROVIDERS: PCP Family Medicine; Visit Provider Family Medicine | DX: R31.9 Hematuria, unspecified (principal); N39.0 Urinary tract infection, site not specified; R97.20 Elevated prostate specific antigen [PSA]; I10 Essential (primary) hypertension; Z00.00 Encounter for general adult medical examination without abnormal findings | CPT/HCPCS: 80053; 80061; 81000; 84153; 85025 ==

== ENCOUNTER → 2023-05-07 13:47 | Outpatient (BNVA) | payer MEDICARE, OTHER, SELFPAY | PROVIDERS: PCP Family Medicine; Referring Provider Family Medicine; Visit Provider Surgery | DX: Z12.11 Encounter for screening for malignant neoplasm of colon (principal) | CPT/HCPCS: 99024; 99213 ==

== ENCOUNTER → 2024-03-30 11:17 | Outpatient (BNVA) | payer MEDICARE, OTHER, SELFPAY | PROVIDERS: PCP Family Medicine; Visit Provider Family Medicine | DX: Z00.00 Encounter for general adult medical examination without abnormal findings (principal); R31.0 Gross hematuria; R97.20 Elevated prostate specific antigen [PSA]; I10 Essential (primary) hypertension | CPT/HCPCS: 80053; 80061; 84153 ==

== ENCOUNTER → 2024-04-05 11:07 | Outpatient (BNVA) | payer MEDICARE, OTHER, SELFPAY | PROVIDERS: PCP Family Medicine; Visit Provider Nurse Practitioner Family | DX: L82.1 Other seborrheic keratosis (principal); L72.0 Epidermal cyst; D18.01 Hemangioma of skin and subcutaneous tissue; L57.8 Other skin changes due to chronic exposure to nonionizing radiation; Z85.828 Personal history of other malignant neoplasm of skin; B07.8 Other viral warts; L57.0 Actinic keratosis | CPT/HCPCS: 17000; 17110; 99203 ==

== ENCOUNTER → 2024-10-04 10:36 | Outpatient (BNVA) | payer MEDICARE, OTHER, SELFPAY | PROVIDERS: PCP Family Medicine; Visit Provider Nurse Practitioner Family | DX: L57.8 Other skin changes due to chronic exposure to nonionizing radiation (principal); X32.XXXA Exposure to sunlight, initial encounter; L81.4 Other melanin hyperpigmentation; L82.1 Other seborrheic keratosis; Z08 Encounter for follow-up examination after completed treatment for malignant neoplasm; Z85.828 Personal history of other malignant neoplasm of skin; L57.0 Actinic keratosis | CPT/HCPCS: 17000; 99213 ==

== ENCOUNTER 2025-01-01 22:11 | Emergency (ER) | payer MEDICARE, OTHER, SELFPAY ==
--- OUTSIDE RECORDS SUMMARY | 2025-01-01 22:16 | XMS_ITS | Encounter Summary ---
Author Organization [employer] [facility] Address [address] [place] [address] Care Team Providers Care Laborer Wrecking And Salvaging Name Role Phone Unavailable Primary Care Provider Unavailabl e Encounter Details Date Type Department Care Team (Latest Contact Info) Description 11/05/2001 Outpatient Historical [facility] Romie Faria, Alex Parra MD [address] [place] [address] SCREENING-ENDOC/NUT/ MET/IMMUN OTHER (Primary Dx); SCREENING-LIPOID DISORDERS; SCREENING-THYROID DISORDER; SCREENING MAL NEOP-PROSTATE Social History Tobacco Use Types Packs/Day Years Used Date Smoking Tobacco: Never Assessed Sex and Gender Information Value Date Recorded Sex Assigned at Not on file 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
--- OUTSIDE RECORDS SUMMARY | 2025-01-01 22:16 | XMS_ITS | Encounter Summary ---
Author Organization [facility] Address [address] [place] [address] Care Team Providers Care Car Tester Name Role Phone Unavailable Primary Care Provider Unavailabl e Encounter Details Date Type Department Care Team (Late st Contact Info) Description 11/26/2000 Outpatient Historical [facility] [place] [address] [facility] [address] [place] [address] Social History Tobacco Use Types Packs/Day Years Used Date Smoking Tobacco: Never Assessed Sex and Gender Information Value Date Recorded Sex Assigned at Not on file 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
--- OUTSIDE RECORDS SUMMARY | 2025-01-01 22:16 | XMS_ITS | Encounter Summary ---
Author Organization [email or web address] [facility] Address [address] [place] [address] Care Team Providers Care Power Transformer Repairer Name Role Phone Unavailable Primary Care Provider Unavailabl e Encounter Details Date Type Department Care Team (Latest Contact Info) Description 11/13/2000 Outpatient Historical [facility] Jeff Sanchez MD NO ADDRESS ON FILE Other specified aftercare following surgery (Primary Dx) Social History Tobacco Use Types Packs/Day Years Used Date Smoking Tobacco: Never Assessed Sex and Gender Information Value Date Recorded Sex Assigned at Not on file 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
--- OUTSIDE RECORDS SUMMARY | 2025-01-01 22:16 | XMS_ITS | Patient Health Record ---
Author Organization [facility] Address [address] [place] [address] Care Team Providers Care Director Of Events Name Role Phone Gerson Sánchez Primary Care Provider Sierra Gill [phone] Allergies Allergen (clinical drug ingredient) Drug/Non Drug Allergy documented on EMR Reaction Allergy Type Onset Date Status oxycodone Oxycodone HCl Unknown Drug Allergy Act leo pravastatin Pravastatin Sodium Unknown Drug Allergy Active Reason For Referral No Information Medications Medication SIG (Take, Route, Frequency, Duration) Notes Start Date End Date Status Vitamin D3 25 MCG (1000 UT) Capsule 1 capsule Orally Once a day Active Latanoprost 0.005 % Solution 1 drop into affected eye in the evening Ophthalmic Once a day Active CoQ10 100 MG Capsule 1 capsule with a me al Orally Once a day Active Lisinopril 10 MG Tablet TAKE 1 TABLET BY MOUTH TWICE A DAY; Duration: 90 Active Immunizations Vaccine Route Administration Date Status Comme nts Afluria Quadrivalent Influenza Vaccine 3 years+ IM Intramuscular 04/16/2020 Administered Social History Tobacco Use: Social History Observation Description Date Details (start date - stop date) Never Smoker NA - NA Social History Depression Screening Social Info Question Answer Notes PHQ-9 Little interest or pleasure in doing thin gs Not at all Feeling down, depressed, or hopeless Not at all Trouble falling or staying asleep, or sleeping t oo much Not at all Feeling tired or having little energy Not at all Poor appetite or overeating Not at all Feeling bad about yourself, or that you are a failure, or have let yourself or your family down Not at all Trouble concentrating on thi ngs, such as reading the newspaper or watching television Not at all Moving or speaking so slowly that other people could have noticed. Or the opposite ? being so fidgety or restless that you have been moving around a lot more than usual Not at all Thoughts that you would be b mojgan off , or of hurting yourself in some way Not at all Total Score 0 Drugs/Alcohol: Social Info Question Answer Notes Alcohol Screen (Audit-C) Did you have a drink containing alcohol in the past year? No Points 0 Interpretation Negative Drugs Have you used drugs other than those for medical reasons in the past 12 months? No Tobacco Use: Social Info Question Answer Notes xTobacco Use/Smoking Are you a nonsmoker Additional Details Category Social Info Options Details Drugs/Alcohol: Do you smoke marijuana? Díaz zzMigrated Social History Migrated Social History Advance Directive: Current and Verified Signed on 05/18/2013, withhold IV and tube nutrition, withhold surgery, withhold antibiotics, withhold mechanical ventilator, withhold radiation therapy, withhold dialysis, withhold chemotherapy, withhold CPR Other All other Life Prolonging ... Organ Donation: Patient refuses Organ Donation Highest Level of Education High School Education (9-12) Completed 12th grade only Problems Problem Type SNOMED Code ICD Code Onset Dates Problem Status W/U Status Risk Notes Problem Chronic pain (99779527) Other chronic pain (G89.29) Active confirmed Problem Nephrolithiasis (61831417) Nephrolithiasis (N20.0) Active confirmed Problem Cardiac arrhythmia (154907471) Irregular heart rhythm (I49.9) Active confirmed Problem Esophageal stricture (28841781) Esophageal stricture (K22.2) Active confirmed Problem Solitary nodule of lung (972104722) Lung nodule (518.89) 2016 Active confirmed [id number]- Problem Hypertension (97806103) Hypertension (401.1) 2012 Active confirmed [id number]- Problem Hypertriglyceridemia (826925132) Hypertriglyceridemia (272.1) 2013 Active confirmed [id number]- Problem Neutropenia (602978116) Neutropenia, unspecified (288.00) 2013 Problem resolved confirmed [id number]- Problem Acute sinusitis (03969901) Acute sinusitis, unspecified (461.9) 2016 Problem resolved confirmed [id number]- Problem Cough (65122146) Cough (786.2) 2016 Problem resolved confirmed [id number]- Problem Slowing of urinary stream (10145918) Slowing of urinary stream (788.62) 2012 Problem resolved confirmed [id number]- Problem Blood chemistry abnormal (687582382) Other abnormal blood chemistry (790.6) 2013 Problem resolved confirmed [id number]- Problem Elevated PSA (228474128) Elevated prostate specific antigen (PSA) (790.93) 2012 Problem resolved confirmed [id number]- Problem Tenderness of right lower quadrant of abdomen (953918279) RLQ abdominal tenderness (789.63) 2016 Problem resolved confirmed [id number]- Problem Screening for cardiovascular system disease (procedure) (325082885) Screening for cardiovascular conditions (V81.2) 2012 Problem resolved confirmed [id number]- Problem Sore throat (232245051) Sore Throat (462) 2017 Problem resolved confirmed [id number]- Problem Screening for malignant neoplasm of colon (147707741) Screening for colorectal cancer (V76.49) 2012 Problem resolved confirmed [id number]- Problem General examination of patient (278471942) Annual exam (V70.0) 2015 Problem resolved confirmed [id number]- Problem Serous otitis media (40725162) Serous otitis media (381.4) 2014 Problem resolved confirmed [id number]- Problem Weak urinary stream (558238849) Weak urinary stream (788.62) 2015 Problem resolved confirmed [id number]- Problem Acute otitis media (0215564) Acute otitis media (382.00) 2012 Problem resolved confirmed [id number]- Problem Renal calculus (83401136) Renal calculus (592.0) 2016 Problem resolved confirmed [id number]- Problem Retention of urine (671568059) Urinary retention, other specified retention (788.29) 2015 Problem resolved confirmed [id number]- Problem General examination of patient (052654979) Wellness exam (V70.0) 2018 Problem resolved confirmed [id number]- Plan Of Treatment No Information Insurance Providers Payer Name Payer Address Payer Phone Subscriber Number Group Number Insured Name Patient Relationship to Insured Coverage Start Date Coverage End Date [place] [address] [address] [place] [address] [phone] [id number] Alex Green Self - patient is the insured [employer] Medicare Supplement [address] [address] [place] [phone] [id number] Alex Machado Self - patient is the insured Medical (General) History Medical History History ICD Code Hypertension Hypertriglyceridemia Lung nodule Hx of skin cancer Elevated PSA- Followed by Dr. Lentz Glaucoma PREVENTIVE HEALTH MAINTENANCE Thyroid US- 04/10/2018 which showed 2 fa tty lymphnodes Colonoscopy- 07/20/2015 which showed cecum polyps, diverticulosis; next one due 06/2020 CT chest- 01/26/2019 which antonio wed stable benign right middle lobe, atherosclerotic cardiovascular changed, arthritic changes of both glenohumeral joints Eye exam- 12/2018 Influenza vaccine- 02/22/2019 Pneumococcal vaccine- 2011 Prevnar - 05/2014 Tetanus vaccine- 05/2013 Shingles vaccine- 05/2013 Shingrix- 07/04/2019 Refused d/t cost Microalbumin, urine- 11/03/2018 Upper GI- 04/29/2018 which was normal Surgical History Surgery Date(Month/Year) right knee replacement 06/2020 right shoulder joint placed 08/2019 Cataract removal; bilateral Tonsillectomy/Adenoidectomy Hospitalization History Reason Date(Month/Year) Tonsillectomy/Adenoidectomy Prostate surgery
--- OUTSIDE RECORDS SUMMARY | 2025-01-01 22:16 | XMS_ITS | Encounter Summary ---
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
--- OUTSIDE RECORDS SUMMARY | 2025-01-01 22:16 | XMS_ITS | Encounter Summary ---
Author Organization [employer] [facility] Address [address] [place] [address] Care Team Providers Care Special Delivery Worker Name Role Phone Unavailable Primary Care Provider Unavailabl e Encounter Details Date Type Department Care Team (Latest Contact Info) Description 09/09/2000 Outpatient Historical HIS [facility] PLASTIC SURGERY Jeff Sanchez MD NO ADDRESS ON FILE Malig mathew skin arm (Primary Dx) Social History Tobacco Use Types Packs/Day Years Used Date Smoking Tobacco: Never Assessed Sex and Gender Information Value Date Recorded Sex Assigned at Not on file 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
--- OUTSIDE RECORDS SUMMARY | 2025-01-01 22:16 | XMS_ITS | Clinical Summary ---
Author Organization [facility] Address [address] 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
--- OUTSIDE RECORDS SUMMARY | 2025-01-01 22:16 | XMS_ITS | Encounter Summary ---
Author Organization [employer] [facility] Address [address] [place] [address] Care Team Providers Care Production Line Worker Name Role Phone Unavailable Primary Care Provider Unavailabl e Encounter Details Date Type Department Care Team (Latest Contact Info) Description 10/30/2000 Outpatient Historical HIS [facility] Jeff Sanchez MD NO ADDRESS ON FILE Malig mathew skin arm (Primary Dx) Social History Tobacco Use Types Packs/Day Years Used Date Smoking Tobacco: Never Assessed Sex and Gender Information Value Date Recorded Sex Assigned at Not on file 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
--- OUTSIDE RECORDS SUMMARY | 2025-01-01 22:16 | XMS_ITS | Encounter Summary ---
Author Organization [employer] [facility] Address [address] [place] [address] Care Team Providers Care Caul Fat Puller Name Role Phone Unavailable Primary Care Provider Unavailabl e Encounter Details Date Type Department Care Team (Latest Contact Info) Description 11/19/2001 Outpatient Historical HIS [facility] Romie Faria, Alex Parra MD [address] [place] [address] Hypertrophy of prostate (Primary Dx); Elevated PSA Social History Tobacco Use Types Packs/Day Years Used Date Smoking Tobacco: Never Assessed Sex and Gender Information Value Date Recorded Sex Assigned at Not on file 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
--- OUTSIDE RECORDS SUMMARY | 2025-01-01 22:16 | XMS_ITS | Encounter Summary ---
Author Organization [employer] [facility] Address [address] [place] [address] Care Team Providers Care Java Grails Developer Name Role Phone Unavailable Primary Care Provider Unavailabl e Encounter Details Date Type Department Care Team (Latest Contact Info) Description 11/03/2001 Outpatient Historical HIS [facility] Romie Faria, Alex Parra MD [address] [place] [phone] Toxic effect venom (Primary Dx) Social History Tobacco Use Types Packs/Day Years Used Date Smoking Tobacco: Never Assessed Sex and Gender Information Value Date Recorded Sex Assigned at Not on file Legal Sex Male 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
[2025-01-01 22:20] VITALS: BP 141/84; PULSE 90; RESP 18; TEMP 36.9; O2SAT 96
--- NOTE | 2025-01-02 00:08 | ED_ITS ---
HPI - Skin/Abscess/Foreign Bdy 2 General: Chief complaint: Skin/Abscess/Foreign Body Stated complaint: Allergic Reaction Time Seen by Provider: 01/01/25 23:37 History of Present Illness: Patient is an 84-year-old gentleman that had 2 vaccines yesterday of unknown kind. Patient states he woke up this a.m. with redness to his chest, and her groin, lower extremities, upper extremities with association of itching. He has redness. No fever. This was upon awakening. Patient utilized unknown cream for the allergic reaction, states it does not work Associated symptoms: Deny chills or fever(s) Related Data Home Medications ?Medication ?Instructions ?Recorded ?Confirmed cholecalciferol (vitamin D3) 25 25 mcg PO DAILY 03/30/24 mcg (1,000 unit) capsule coenzyme Q10 100 mg capsule (Co 100 mg PO DAILY 03/30/24 Q-10) latanoprost 0.005 % eye drops 1 drp ophthalmic (eye) D AILY 08/14/20 03/30/24 Previous Rx's ?Medication ?Instructions ?Recorded hydroxyzine pamoate 25 mg capsule 25 mg PO Q6H PRN itc mark #20 caps 01/02/25 methylprednisolone 4 mg tablets in See Rx Instructions PO .COMPLEX 01/02/25 a dose pack (Medrol (Kvng)) #21 ea Allergies Allergy/AdvReac Type Severity Reaction Status Date / Time No Known Allergies Allergy Verified 01/01/25 22:23 Review of Systems 2 General: Reports: 10 or more systems reviewed and unremarkable except in HPI and below Const: Denies: fever(s), chills, change in weight or fatigue Eyes: Denies: change in vision ENMT: Denies: odynophagia Card: Denies: chest pain or palpitations Resp: Denies: dyspnea GI: Denies: abdominal pain, dysphagia or hematochezia : Denies: dysuria Musc: Denies: neck pain, back pain, extremity pain, extremity swelling or limited range of motion Skin/Breast: Reports: rash, pruritus, erythema and skin tenderness; Denies: photosensitivity, skin pain, skin swelling or new lesions Neuro: Denies: seizure-like activity Psych: Denies: anxiety or depression Hasmukh/Lymph: Denies: easy bruising PFSH ED 2 PFSH: Medical History (Updated 01/02/25 @ 00:17 by MICHAEL Severino) Hx of colonic polyps HTN (hypertension) Bilateral renal stones Bladder stone CYSTOLITHALOPAXY Benign prostatic hyperplasia with lower urinary tract symptoms Elevated PSA Surgical History History of shoulder replacement Hx of total knee replacement History of tonsillectomy and adenoidectomy Hx of transurethral resection of prostate With CYSTOLITHALOPAXY Hx of cataract removal with insertion of prosthetic lens Family History Mother , AT AGE 30 No problems noted. Father , AT AGE 99 No problems noted. Social History Smoking and tobacco/nicotine status: never used tobacco/nicotine Alcohol intake: never Substance/Drug Use: unknown Adopted: No Caregiver/support person: No Marital status: / Current occupational status: employed Physical Exam 2 Const: COMMON NORMALS: no acute distress, average body habitus and patient oriented x3 HENMT: COMMON NORMALS: normocephalic and atraumatic HEAD & SCALP: n ormocephalic and atraumatic Eye: COMMON NORMALS: Equal, round and reactive pupils present and EOMs intact bilaterally PUPIL: Yes Equal, round and reactive pupils present Neck/C-Spine: COMMON NORMALS: full ROM, no lymphadenopathy and no JVD Lymph: LYMPHATIC: no lymphadenopathy noted Chest: COMMONS NORMALS: normal inspection of the chest and normal palpation of entire chest wall Resp: COMMON NORMALS: normal respiratory effort and No retractions Cardio: COMMON NORMALS: no JVD, regular rate and regular rhythm RATE: r egular rate RHYTHM: regular rhythm GI: COMMON NORMALS: Normal to inspection, nondistended, normoactive bowel sounds present, Soft to palpation and non-tender PALPATION: Yes Soft to palpation : COMMON NORMALS: Yes no CVA tenderness BLADDER/KIDNEY EXAM: Yes no CVA tenderness Back/Pelvis: COMMON NORMALS: no CVA tenderness Extremity: NARRATIVE EXTREMITY EXAM: see skin Neuro: COMMON NORMALS: patient oriented x3 Skin: SKIN IMAGES (MALE): 1. Red wheals 2. Red wheals 3. Red wheals 4. Red wheals 5. Red wheals 6. Red wheals Course 2 Vital Signs: Vital signs: Vital Signs Temperature 98.5 F 01/01/25 22:20 Pulse Rate 90 01/01/25 22:20 Respiratory Rate 18 01/01/25 22:20 Blood Pressure 141/84 01/01/25 22:20 Pulse Oximetry 96 01/01/25 22:20 Oxygen Delivery Me thod Room Air 01/01/25 22:20 MDM - Skin/Abscess/Foreign Bdy Medicial Decision Making Patient is a 84-year-old gentleman with 2 vaccines yesterday, unknown kind. He awoke this morning with allergic reaction. Will be treated as allergic reaction, with medication appropriate to the pharmacy. No radiology studies performed this visit Discharge Plan Discharge Patient Disposition: Home Clinical Impression: Allergic reaction to vaccine Condition: Stable Prescriptions: New hydroxyzine pamoate 25 mg capsule 25 mg PO Q6H PRN (Reason: itching) Qty: 20 0RF methylprednisolone [Medrol (Kvng)] 4 mg tablets,dose pack See Rx Instructions .ROUTE .COMPLEX Qty: 21 0RF Rx Instructions: for 6 days No Action cholecalciferol (vitamin D3) 25 mcg (1,000 unit) capsule 25 mcg PO DAILY coenzyme Q10 [Co Q-10] 100 mg capsule 100 mg PO DAILY latanoprost 0.005 % drops 1 drp ophthalmic (eye) DAILY Discharge Orders: Discharge ED (Routine); Ordered 01/02/25 Ordered By: Citlalli Jay Referrals: Gerson Sánchez MD [Primary Care Provider, Family Practice] Patient Instructions: Allergic Reaction, Patient Portal & Luzmaria Instructions Activity Restrictions/Additional Instructions: Obtain a long-acting antihistamine such as Claritin, Zyrtec, Xyzal, Carla [id number] and take 1 twice a day x 5 days. Obtain Pepcid [id number]-[id number]-[id number] and take 1-2 times a day x 5 days. Obtain Benadryl [id number] for as needed. You have a prescription that covers itching. If this is not improving, you may utilize the Benadryl. You may utilize topicals [id number] for itching Return to ED for shortness of breath, worsening redness. Is important to follow-up with your doctor regarding today's visit. Please call tomorrow to make an appointment and follow-up regarding your vaccines. Print Language: Italian Coding Level of Care Code ED Configuration Management Manager for Helen Morales
[2025-01-02] MEDS: diphenhydrAMINE 50 mg/mL SDV 1mL IM (00:17)
[2025-01-02 00:44] VITALS: BP 145/79; PULSE 79; RESP 16; O2SAT 97
== END 2025-01-02 00:46 | disposition home or self-care (01) ==
PROVIDERS: Emergency Provider Physician Assistant; PCP Family Medicine
DX: T80.62XA Other serum reaction due to vaccination, initial encounter (principal); X58.XXXA Exposure to other specified factors, initial encounter; I10 Essential (primary) hypertension
CPT/HCPCS: 96372; 99284; J1100; J1200; J9999

== ENCOUNTER 2025-01-03 00:41 | Emergency (ER) | payer MEDICARE, OTHER, SELFPAY ==
--- OUTSIDE RECORDS SUMMARY | 2025-01-03 00:46 | XMS_ITS | Encounter Summary ---
Author Organization [facility] Address [address] [place] [address] Care Team Providers Care Radio Script Writer Name Role Phone Unavailable Primary Care Provider Unavailabl e Encounter Details Date Type Department Care Team (Late st Contact Info) Description 11/26/2000 Outpatient Historical [facility] [place] [address] [facility] [address] [place] [address] Social History Tobacco Use Types Packs/Day Years Used Date Smoking Tobacco: Never Assessed Sex and Gender Information Value Date Recorded Sex Assigned at Not on file 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
--- OUTSIDE RECORDS SUMMARY | 2025-01-03 00:46 | XMS_ITS | Encounter Summary ---
Author Organization [employer] [facility] Address [address] [place] [address] Care Team Providers Care Customer Service Associate Name Role Phone Unavailable Primary Care Provider Unavailabl e Encounter Details Date Type Department Care Team (Latest Contact Info) Description 11/05/2001 Outpatient Historical HIS [facility] Romie Faria, Alex Parra MD [address] [place] [address] SCREENING-ENDOC/NUT/ MET/IMMUN OTHER (Primary Dx); SCREENING-LIPOID DISORDERS; SCREENING-THYROID DISORDER; SCREENING MAL NEOP-PROSTATE Social History Tobacco Use Types Packs/Day Years Used Date Smoking Tobacco: Never Assessed Sex and Gender Information Value Date Recorded Sex Assigned at Not on file 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
--- OUTSIDE RECORDS SUMMARY | 2025-01-03 00:46 | XMS_ITS | Encounter Summary ---
Author Organization [email or web address] [facility] Address [address] [place] [address] Care Team Providers Care Tub Tender Name Role Phone Unavailable Primary Care Provider Unavailabl e Encounter Details Date Type Department Care Team (Latest Contact Info) Description 09/09/2000 Outpatient Historical HIS [facility] SURGERY Jeff Sanchez MD NO ADDRESS ON FILE Malig mathew skin arm (Primary Dx) Social History Tobacco Use Types Packs/Day Years Used Date Smoking Tobacco: Never Assessed Sex and Gender Information Value Date Recorded Sex Assigned at Not on file Legal Sex Male 3:54 AM BOILER OUT Gender Identity Not on file Sexual Orientation Not on file documented as of this encounter Plan of Treatment Not on file documented as of this encounter Visit Diagnoses Diagnosis 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
--- OUTSIDE RECORDS SUMMARY | 2025-01-03 00:46 | XMS_ITS | Encounter Summary ---
Author Organization [email or web address] [facility] Address [address] [place] [address] Care Team Providers Care Inventory Taker Name Role Phone Unavailable Primary Care Provider Unavailabl e Encounter Details Date Type Department Care Team (Latest Contact Info) Description 11/03/2001 Outpatient Historical HIS [facility] Romie Faria, Alex Parra MD [address] [place] [phone] Toxic effect venom (Primary Dx) Social History Tobacco Use Types Packs/Day Years Used Date Smoking Tobacco: Never Assessed Sex and Gender Information Value Date Recorded Sex Assigned at Not on file 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
--- OUTSIDE RECORDS SUMMARY | 2025-01-03 00:46 | XMS_ITS | Encounter Summary ---
Author Organization [employer] [facility] Address [address] [place] [address] Care Team Providers Care Quality Improvement Coordinator Name Role Phone Unavailable Primary Care Provider Unavailabl e Encounter Details Date Type Department Care Team (Latest Contact Info) Description 11/13/2000 Outpatient Historical HIS [facility] Jeff Sanchez MD NO ADDRESS ON FILE Other specified aftercare following surgery (Primary Dx) Social History Tobacco Use Types Packs/Day Years Used Date Smoking Tobacco: Never Assessed Sex and Gender Information Value Date Recorded Sex Assigned at Not on file 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
--- OUTSIDE RECORDS SUMMARY | 2025-01-03 00:46 | XMS_ITS | Encounter Summary ---
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
--- OUTSIDE RECORDS SUMMARY | 2025-01-03 00:46 | XMS_ITS | Clinical Summary ---
Author Organization [employer] [facility] Address [address] 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
--- OUTSIDE RECORDS SUMMARY | 2025-01-03 00:46 | XMS_ITS | Encounter Summary ---
Author Organization [employer] 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
--- OUTSIDE RECORDS SUMMARY | 2025-01-03 00:46 | XMS_ITS | Encounter Summary ---
Author Organization [employer] [facility] Address [address] [place] [address] Care Team Providers Care Life Enrichment Assistant Name Role Phone Unavailable Primary Care Provider Unavailabl e Encounter Details Date Type Department Care Team (Latest Contact Info) Description 11/19/2001 Outpatient Historical HIS [facility] Romie Faria, Alex Parra MD [address] [place] [address] Hypertrophy of prostate (Primary Dx); Elevated PSA Social History Tobacco Use Types Packs/Day Years Used Date Smoking Tobacco: Never Assessed Sex and Gender Information Value Date Recorded Sex Assigned at Not on file 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
--- OUTSIDE RECORDS SUMMARY | 2025-01-03 00:46 | XMS_ITS | Patient Health Record ---
Author Organization [facility] Address [address] [place] [address] Care Team Providers Care Corporate Lawyer Name Role Phone Gerson Sánchez Primary Care Provider Sierra Gill [phone] Allergies Allergen (clinical drug ingredient) Drug/Non Drug [...] W/U Status Risk Notes Problem Chronic pain (28151149) Other chronic pain (G89.29) Active confirmed Problem Nephrolithiasis (36252732) Nephrolithiasis (N20.0) Active confirmed Problem Cardiac arrhythmia (473080513) Irregular heart rhythm (I49.9) Active confirmed Problem Esophageal stricture (83743130) Esophageal stricture (K22.2) Active confirmed Problem Solitary nodule of lung (173369662) Lung nodule (518.89) 2016 Active confirmed [id number]- Problem Hypertension (03682014) Hypertension (401.1) 2012 Active confirmed [id number]- Problem Hypertriglyceridemia (946902766) Hypertriglyceridemia (272.1) 2013 Active confirmed [id number]- Problem Neutropenia (887113220) Neutropenia, unspecified (288.00) 2013 Problem resolved confirmed [id number]- Problem Acute sinusitis (36135408) Acute sinusitis, unspecified (461.9) 2016 Problem resolved confirmed [id number]- Problem Cough (01625379) Cough (786.2) 2016 Problem resolved confirmed [id number]- Problem Slowing of urinary stream (81802707) Slowing of urinary stream (788.62) 2012 Problem resolved confirmed [id number]- Problem Blood chemistry abnormal (970526002) Other abnormal blood chemistry (790.6) 2013 Problem resolved confirmed [id number]- Problem Elevated PSA (630132133) Elevated prostate specific antigen (PSA) (790.93) 2012 Problem resolved confirmed [id number]- Problem Tenderness of right lower quadrant of abdomen (660361913) RLQ abdominal tenderness (789.63) 2016 Problem resolved confirmed [id number]- Problem Screening for cardiovascular system disease (procedure) (210151629) Screening for cardiovascular conditions (V81.2) 2012 Problem resolved confirmed [id number]- Problem Sore throat (530066642) Sore Throat (462) 2017 Problem resolved confirmed [id number]- Problem Screening for malignant neoplasm of colon (903712424) Screening for colorectal cancer (V76.49) 2012 Problem resolved confirmed [id number]- Problem General examination of patient (734022103) Annual exam (V70.0) 2015 Problem resolved confirmed [id number]- Problem Serous otitis media (43169920) Serous otitis media (381.4) 2014 Problem resolved confirmed [id number]- Problem Weak urinary stream (474201515) Weak urinary stream (788.62) 2015 Problem resolved confirmed [id number]- Problem Acute otitis media (5788171) Acute otitis media (382.00) 2012 Problem resolved confirmed [id number]- Problem Renal calculus (98036565) Renal calculus (592.0) 2016 Problem resolved confirmed [id number]- Problem Retention of urine (500794549) Urinary retention, other specified retention (788.29) 2015 Problem resolved confirmed [id number]- Problem General examination of patient (161417957) Wellness exam (V70.0) 2018 Problem resolved confirmed [id number]- Plan Of Treatment No Information Insurance Providers Payer Name Payer Address Payer Phone Subscriber Number Group Number Insured Name Patient Relationship to Insured Coverage Start Date Coverage End Date [place] [address] [address] [place] [address] [id number] Alex Green Self - patient is the insured [employer] Supplement [address] [address] [place] [address] [id number] Alex Machado Self - patient is the [...] which was normal Surgical History Surgery Date(Month/Year) Tonsillectomy/Adenoidectomy Cataract removal; bilateral right shoulder joint placed 08/2019 right knee replacement 06/2020 Hospitalization History Reason Date(Month/Year) Tonsillectomy/Adenoidectomy Prostate surgery
[2025-01-03 00:50] VITALS: BP 161/87; PULSE 116; RESP 20; TEMP 36.4; BMI 24.3
--- NOTE | 2025-01-03 02:36 | W.ED.ALLEREA ---
HPI - Allergic Reaction General: Chief complaint: Allergic Reaction Stated complaint: Allergic Reaction Time Seen by Provider: 01/03/25 02:19 History of Present Illness: HPI narrative: Patient has had a generalized rash for a couple of days now. He was seen in the ER yesterday and given steroids and was ordered hydroxyzine but he said he did not get it because he was not itching then. He now has an itch and so he came back to the emergency room. Generalized rash. See yesterday's notes. Related Data Home Medications ?Medication ?Instructions ?Recorded ?Confirmed cholecalciferol (vitamin D3) 25 25 mcg PO DAILY 12/27/19 03/30/24 mcg (1,000 unit) capsule coenzyme Q10 100 mg capsule (Co 100 mg PO DAILY 12/30/19 03/30/24 Q-10) latanoprost 0.005 % eye drops 1 drp ophthalmic (eye) DAILY 08/14/20 03/30/24 Previous Rx's ?Medication ?Instructions ?Recorded hydroxyzine pamoate 25 mg capsule 25 mg PO Q6H PRN itching #20 caps 01/02/25 methylprednisolone 4 mg tablets in See Rx Instructions PO .COMPLEX 01/02/25 a dose pack (Medrol (Kvng)) #21 ea Allergies Allergy/AdvReac Type Severity Reaction Status Date / Time No Known Allergies Allergy Verified 01/01/25 22:23 Review of Systems Narrative: Constitutional symptoms: Negative except as documented in HPI. Skin symptoms: Negative except as documented in HPI. Eye symptoms: Negative except as documented in HPI. ENMT symptoms: Negative except as documented in HPI. Respiratory symptoms: Negative except as documented in HPI. Cardiovascular symptoms: Negative except as documented in HPI. Gastrointestinal symptoms: Negative except as documented in HPI. Genitourinary symptoms: Negative except as documented in HPI. Musculoskeletal symptoms: Negative except as documented in HPI. Neurologic symptoms: Negative except as documented in HPI. Psychiatric symptoms: Negative except as documented in HPI. Endocrine symptoms: Negative except as documented in HPI. PFS ED PFSH: Medical History (Updated 01/03/25 @ 02:55 by Nichole Garcia MD) Hx of colonic polyps HTN (hypertension) Bilateral renal stones Bladder stone CYSTOLITHALOPAXY Benign prostatic hyperplasia with lower urinary tract symptoms Elevated PSA Surgical History History of shoulder replacement Hx of total knee replacement History of tonsillectomy and adenoidectomy Hx of transurethral resection of prostate With CYSTOLITHALOPAXY Hx of cataract removal with insertion of prosthetic lens Family History Mother , AT AGE 30 No problems noted. Father , AT AGE 99 No problems noted. Social History Smoking and tobacco/nicotine status: never used tobacco/nicotine Alcohol intake: never Substance/Drug Use: unknown Adopted: No Caregiver/support person: No Marital status: / Current occupational status: employed Physical Exam Narrative: EXAM NARRATIVE: General: Alert, no acute distress. Skin: warm and dry, red raised rash on arms and legs. Head: Normocephalic Neck: Trachea midline Eye: Extraocular movements are intact. Ears, nose, mouth and throat: Oral mucosa moist Respiratory: Respirations are non-labored Musculoskeletal: Normal ROM Gastrointestinal: Abdomen does not appear distended Neurological: Alert and oriented, No focal neurological deficit observed. Psychiatric: Cooperative, appropriate mood & affect. Course Vital Signs: Vital signs: Vital Signs Temperature 97.5 F L 01/03/25 00:50 Pulse Rate 116 H 01/03/25 00:50 Respiratory Rate 20 H 01/03/25 00:50 Blood Pressure 161/87 01/03/25 00:50 MDM - Allergic Reaction Medical Decision Making Assessment and plan: Rash ? Benadryl in the emergency room. - Discharged home - Discussed plan with patient. Answered any questions. - Evaluation and treatment of this problem were appropriate in the emergency setting. No radiology studies performed this visit Discharge Plan Discharge Patient Disposition: Home Clinical Impression: Allergic reaction Condition: Stable Prescriptions: No Action cholecalciferol (vitamin D3) 25 mcg (1,000 unit) capsule 25 mcg PO DAILY coenzyme Q10 [Co Q-10] 100 mg capsule 100 mg PO DAILY latanoprost 0.005 % drops 1 drp ophthalmic (eye) DAILY hydroxyzine pamoate 25 mg capsule 25 mg PO Q6H PRN (Reason: itching) Qty: 20 0RF methylprednisolone [Medrol (Kvng)] 4 mg tablets,dose pack See Rx Instructions .ROUTE .COMPLEX Qty: 21 0RF Rx Instructions: for 6 days Discharge Orders: Discharge ED (Routine); Ordered 01/03/25 Ordered By: Nichole Garcia Referrals: Gerson Sánchez MD [Primary Care Provider, Family Practice] Discharge Diet: Usual diet Discharge Activity: Increase activity as tolerated Patient Instructions: Opioid Safety, Pain Management, Patient Portal & Luzmaria Instructions Activity Restrictions/Additional Instructions: Thank you for choosing [facility] for your healthcare needs today. You have been screened and evaluated and felt safe for discharge. Health conditions do change or evolve sometimes and as such it is important that you follow up with your Primary Doctor to be re checked, 3-5 days is a general good time frame for follow up. You are always welcome to return to the ED for re assessment if your symptoms are worsening or you have new concerns Print Language: Kiswahili Coding Level of Care Code ED Shop Manager for Helen Morales
[2025-01-03 03:05] VITALS: BP 128/81; PULSE 65; RESP 14; O2SAT 95
== END 2025-01-03 03:06 | disposition home or self-care (01) ==
PROVIDERS: Emergency Provider Emergency Medicine; PCP Family Medicine
DX: T78.40XA Allergy, unspecified, initial encounter (principal); R21 Rash and other nonspecific skin eruption; X58.XXXA Exposure to other specified factors, initial encounter
CPT/HCPCS: 99283

== ENCOUNTER → 2025-01-11 09:30 | Outpatient (BNVA) | payer MEDICARE, OTHER, SELFPAY | PROVIDERS: PCP Family Medicine; Visit Provider Family Medicine | DX: R31.9 Hematuria, unspecified (principal); R10.9 Unspecified abdominal pain | CPT/HCPCS: 87086 ==

== ENCOUNTER → 2025-01-16 14:33 | Outpatient (BNVA) | payer MEDICARE, OTHER, SELFPAY | PROVIDERS: PCP Family Medicine; Visit Provider Family Medicine | DX: R31.0 Gross hematuria (principal) | CPT/HCPCS: 80048; 84153; 85025 ==

== ENCOUNTER 2025-01-23 13:44 | Outpatient (CLI) | payer MEDICARE, OTHER, SELFPAY ==
--- NOTE | 2025-01-23 14:15 | US_ITS ---
WS: [id number] RENAL ULTRASOUND URINARY BLADDER ULTRASOUND HISTORY: gross hematuria COMPARISON: CT 01/04/2023 TECHNIQUE: 2-D and color Doppler imaging of the kidney submitted. Right kidney: 10.4 cm x 5.4 cm x 6.6 cm. Normal echogenicity with no hydronephrosis or mass. Left kidney: 10.4 cm x 4.5 cm x 5.2 cm. Normal echogenicity with no hydronephrosis or mass. There are a few small cortical cysts which were also present on the prior CT. The largest measures 2.6 x 2.7 x 3.4 cm. No renal obstruction. Aorta: Mild atherosclerosis aorta. Urinary Bladder: Well-distended urinary bladder Heterogeneous enlarged prostate gland encroaches into the bladder. Calcific deposits are noted in the prostate. Prostate measures 6.0 x 5.9 x 5.4 cm. Tubular soft tissue mass projects into the urinary bladder which is inseparable from the superior prostate. There is no vascularity. This area measures 5.8 x 3.2 x 3.0 cm. Prevoid: 245 mL. Post void: 199 mL. US/US renal BI with PV bladder IMPRESSION: 1. No renal obstruction. 2. Known LEFT renal cysts. 3. Markedly enlarged prostate gland encroaching into the bladder. 4. Tubular mass extending into the urinary bladder is contiguous with the pros hameed gland but no increased vascularity. Suspect this is probably hematoma in t he urinary bladder urology evaluation recommended.. 5. Significant post void residual 199 mL.
== END 2025-01-23 13:45 | disposition home or self-care (01) ==
LOC: RAD 13:45
PROVIDERS: PCP Family Medicine; Visit Provider Family Medicine
DX: R31.0 Gross hematuria (principal); N28.1 Cyst of kidney, acquired; N40.0 Benign prostatic hyperplasia without lower urinary tract symptoms; N42.0 Calculus of prostate
CPT/HCPCS: 76770; 76857

== ENCOUNTER → 2025-04-03 09:56 | Outpatient (BNVA) | payer MEDICARE, OTHER, SELFPAY | PROVIDERS: PCP Family Medicine; Visit Provider Nurse Practitioner Family | DX: S50.911A Unspecified superficial injury of right forearm, initial encounter (principal); X58.XXXA Exposure to other specified factors, initial encounter; H61.031 Chondritis of right external ear; L72.0 Epidermal cyst; L82.1 Other seborrheic keratosis; D18.01 Hemangioma of skin and subcutaneous tissue; L57.8 Other skin changes due to chronic exposure to nonionizing radiation; X32.XXXA Exposure to sunlight, initial encounter; L81.4 Other melanin hyperpigmentation; Z08 Encounter for follow-up examination after completed treatment for malignant neoplasm; Z85.828 Personal history of other malignant neoplasm of skin; L57.0 Actinic keratosis | CPT/HCPCS: 17000; 99213 ==

== ENCOUNTER → 2025-06-20 12:21 | Outpatient (BNVA) | payer MEDICARE, OTHER, SELFPAY | PROVIDERS: PCP Family Medicine; Visit Provider Surgery | DX: Z12.11 Encounter for screening for malignant neoplasm of colon (principal) | CPT/HCPCS: 99024; 99214 ==